=== PATIENT | female | born 1945 | race Two or more races ===

== ENCOUNTER 2017-05-19 17:48 | Emergency (ER) | payer BC, MEDICARE ==
[~2017-05-19] VITALS: Ht 160 cm; Wt 140.7 kg
[2017-05-19] MEDS ORDERED: [UNRECOGNIZED DRUG - OTHER] PO (18:03)
[2017-05-19] MEDS ORDERED: CLAR1TAB2 PO (18:03)
[2017-05-19] MEDS ORDERED: [UNRECOGNIZED DRUG - CODE] (18:03)
[2017-05-19] MEDS ORDERED: ASPIRIN 81 MG CHEW TABLET PO ONE (18:30)
[2017-05-19] MEDS ORDERED: IPRATROPIUM 0.5MG/ALBUTEROL 2.5MG INH SOL UD 3ML (DUONEB)(J7620) NEB PRN (18:30)
[2017-05-19 19:30] LABS: BASO % 0.7 % (0.0-1.0); EOS # 0.2 K/mm3 (0.0-0.50); EOS % 3.8 % (0.0-3.0); LARGE UNSTAINED CELL # 0.1 K/mm3 (0.0-0.4); LYMPH # 1.7 K/mm3 (1.5-4.5); LYMPH % 23.8 % (24.0-44.0); MEAN CORPUSCULAR HGB CONC 30.3 g/dl (32.0-36.5); MEAN CORPUSCULAR VOLUME 72.5 fl (80.0-96.0); MONO # 0.4 K/mm3 (0.0-0.8); MONO % 6.2 % (0.0-5.0); NEUTROPHILS # 4.2 K/mm3 (1.8-7.7); NEUTROPHILS % 63.5 % (36.0-66.0); PLATELET COUNT, AUTOMATED 480 k/mm3 (150-450); RED CELL DISTRIBUTION WIDTH 16.5 % (11.5-14.5); WHITE BLOOD COUNT 6.6 K/mm3 (4.0-10.0)
[2017-05-19 19:32] LABS: INR 1.14; VENOUS BASE EXCESS 2.3 (-2.0-2.0); VENOUS O2 SATURATION 77.6 % (60.0-80.0); VENOUS PARTIAL PRESSURE CO2 48.4 mmHg (38.0-50.0); VENOUS STANDARD HCO3 26.2 MEQ/L; VENOUS TOTAL CO2 29.5 MEQ/L (24.0-28.0)
--- NOTE | 2017-05-19 19:33 | REP ---
Chest x-ray: Two views: History: Dyspnea and cough. Comparison study: 07/11/2007. Findings: There is a retrocardiac hiatal hernia noted as a new finding. The lungs are well inflated and otherwise clear. The pleural angles are sharp. Heart is not enlarged. No significant bony abnormality is seen. There are some degenerative changes in the thoracic spine as before. Impression: Moderate size hiatal hernia. Otherwise no acute disease seen. Signed by Iron Garcia MD 05/19/2017 08:29 P
[2017-05-19 19:55] VITALS: BP 170/81
[2017-05-19 19:58] LABS: ALBUMIN 3.4 GM/DL (3.2-5.2); ALBUMIN/GLOBULIN RATIO 0.87 (1.00-1.93); ALKALINE PHOSPHATASE 78 U/L (45-117); ALT/SGPT 24 U/L (12-78); ANION GAP 8 MEQ/L (8-16); AST/SGOT 31 U/L (15-37); BILIRUBIN,DIRECT 0.1 MG/DL (0.0-0.2); BILIRUBIN,TOTAL 0.5 MG/DL (0.2-1.0); BLOOD UREA NITROGEN 24 MG/DL (7-18); CALCIUM LEVEL 9.7 MG/DL (8.8-10.2); CARBON DIOXIDE LEVEL 26 MEQ/L (21-32); CHLORIDE LEVEL 102 MEQ/L (98-107); CREATININE FOR GFR 0.84 MG/DL (0.55-1.02); GLOMERULAR FILTRATION RATE > 60.0 (>45); GLUCOSE, FASTING 121 MG/DL (80-110); POTASSIUM SERUM 3.6 MEQ/L (3.5-5.1); SODIUM LEVEL 136 MEQ/L (136-145); TOTAL PROTEIN 7.3 GM/DL (6.4-8.2)
--- NOTE | 2017-05-21 07:22 | ECGEPIP ---
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
== END 2017-05-19 20:18 | disposition home or self-care (01) ==
LOC: M ED 17:48
DX: R06.02 Shortness of breath (principal); R42 Dizziness and giddiness; Z87.891 Personal history of nicotine dependence

== ENCOUNTER 2017-05-24 16:11 | Inpatient (IN) | payer MEDICARE ==
[~2017-05-24] VITALS: Ht 165.1 cm; Wt 140.7 kg
[~2017-05-24 16:11] MED LIST: CLAR1TAB2 PO; [UNRECOGNIZED DRUG - CODE]; [UNRECOGNIZED DRUG - OTHER] PO
[2017-05-24 18:28] LABS: CONTROL LINE MONO RF C INT CTR LINE PRESENT
[2017-05-24 18:33] LABS: BASO % 0.6 % (0.0-1.0); EOS # 0.1 K/mm3 (0.0-0.50); EOS % 1.7 % (0.0-3.0); LARGE UNSTAINED CELL # 0.2 K/mm3 (0.0-0.4); LARGE UNSTAINED CELL % 2.5 % (0.0-4.0); LYMPH # 1.5 K/mm3 (1.5-4.5); LYMPH % 20.4 % (24.0-44.0); MEAN CORPUSCULAR HEMOGLOBIN 21.7 pg (27.0-33.0); MEAN CORPUSCULAR HGB CONC 29.9 g/dl (32.0-36.5); MEAN CORPUSCULAR VOLUME 72.6 fl (80.0-96.0); MONO # 0.4 K/mm3 (0.0-0.8); MONO % 6.4 % (0.0-5.0); NEUTROPHILS # 4.5 K/mm3 (1.8-7.7); NEUTROPHILS % 68.4 % (36.0-66.0); PLATELET COUNT, AUTOMATED 533 k/mm3 (150-450); RED CELL DISTRIBUTION WIDTH 16.7 % (11.5-14.5); WHITE BLOOD COUNT 6.6 K/mm3 (4.0-10.0)
[2017-05-24 18:42] LABS: ALKALINE PHOSPHATASE 82 U/L (45-117); ALT/SGPT 20 U/L (12-78); ANION GAP 11 MEQ/L (8-16); AST/SGOT 27 U/L (15-37); BLOOD UREA NITROGEN 18 MG/DL (7-18); CALCIUM LEVEL 8.9 MG/DL (8.8-10.2); CARBON DIOXIDE LEVEL 26 MEQ/L (21-32); CHLORIDE LEVEL 103 MEQ/L (98-107); CREATININE FOR GFR 0.99 MG/DL (0.55-1.02); GLOMERULAR FILTRATION RATE 59.2 (>45); GLUCOSE, FASTING 121 MG/DL (80-110); POTASSIUM SERUM 3.5 MEQ/L (3.5-5.1); SODIUM LEVEL 140 MEQ/L (136-145)
[2017-05-24 18:43] LABS: ADD MORPHOLOGY? YES; ALBUMIN 3.2 GM/DL (3.2-5.2); ALBUMIN/GLOBULIN RATIO 0.84 (1.00-1.93); BILIRUBIN,DIRECT 0.2 MG/DL (0.0-0.2); BILIRUBIN,TOTAL 0.6 MG/DL (0.2-1.0)
[2017-05-24 19:02] LABS: ANISOCYTOSIS 1+; HYPOCHROMASIA 2+; MICROCYTOSIS 2+
--- NOTE | 2017-05-24 19:09 | REP ---
Clinical: Chest pain . Comparison: 05/19/2017 . Findings: The mediastinum and cardiac silhouette are stable and within normal limits for portable technique. The lung harvey are clear without acute consolidation, effusion, or pneumothorax. Skeletal structures are intact. Impression: No acute cardiopulmonary process appreciated. Signed by Sharad Cullen MD 05/24/2017 07:00 P
[2017-05-24] MEDS ORDERED: ISOVUE-370 76% 100ML VIAL (Q9967) As Ordered ONE (19:25)
--- NOTE | 2017-05-24 20:06 | REP ---
Clinical: Chest pain with dyspnea on exertion. Technique: Axial contrast enhanced images from the thoracic inlet to the upper abdomen using 100 ml Isovue 370 intravenous contrast material with multiplanar re-formations. Findings: Satisfactory enhancement of the pulmonary vasculature is achieved and small second and third order branch pulmonary emboli identified to the bilateral lower lobes and to a lesser extent the upper lobes. No acute pulmonary parenchymal consolidation. No effusion. No pneumothorax. Tracheobronchial tree is patent. Moderate hiatal hernia identified at the gastroesophageal junction. The thoracic aorta, heart and pericardium are normal. Surrounding musculoskeletal structures are intact. Impression: Second and third order pulmonary emboli to the bilateral lower lobes and smaller emboli to the bilateral upper lobes. No associated pulmonary parenchymal consolidation, effusion or atelectasis. Signed by Sharad Cullen MD 05/24/2017 07:58 P
[2017-05-24] MEDS ORDERED: ENOXAPARIN 150 MG/ML SYR (J1650) SC ONE (20:15)
[2017-05-24] MEDS ORDERED: NS 1,000 ML IV ONE (20:15)
[2017-05-24 20:34] LABS: INR 1.11
[2017-05-24] MEDS ORDERED: DRAM50TA7 PO (21:35)
[2017-05-24] MEDS ORDERED: TUMS500C PO (21:35)
[2017-05-24] MEDS ORDERED: ALEV220T26 PO (21:35)
[2017-05-24] MEDS ORDERED: NEOSPORIN OINT 0.9 GM PKT (FLOOR STOCK) As Ordered ONE (22:29)
[2017-05-24 22:30] VITALS: BP 158/84
--- NOTE | 2017-05-25 00:03 | HPEPDOC ---
General Date of Admission May 24, 2017 at 21:17 Other Providers PT HAS NO PCP Chief Complaint The patient is a 71-year-old female admitted with a reason for visit of Pulmonary Embolism, Bilateral. Source: Patient Exam Limitations: No limitations Timing/Duration: Week(s) (2) Severity: Moderate Associated Symptoms: Cough, Fever, Chills, Shortness of breath History of Present Illness Ms Lobo is a 71 y/o female with no known past medical history who presents to the ED with CC of SOB. The pt states that almost two months ago she began feeling ill, with tactile fever and chills. She said about two weeks ago she noted gradually increasing SOB, especially with ambulation. She was seen in our ED a few days ago and at an urgent care today, where it was suggested as per pt. she may have an element of heart failure. However, urgent care recommended she come back to the ED for further evaluation where it was found she had an elevated D-dimer and CT findings of pulmonary emboli. The pt denied n/v or abdominal pain, no change in urinary or bowel habits, no blood in urine or stool , no prolonged periods of immobility in her recent past such as car rides or airplane flights, no personal hx of cancer and no clotting disorders in her family, she also denied having swelling or redness in her legs. She states she "hasn't seen a doctor in 42 years" because "she hates doctors and hospitals" and has "been busy taking care of my family", and as such she has no idea what her medical conditions are. although she states she may have high blood pressure. Home Medications Scheduled Apixaban Base (Eliquis) 5 Mg Tab, 10 MG PO BID Scheduled PRN Calcium Carbonate (Tums) 500 Mg Chw, 1,000 MG PO PC PRN for HEARTBURN, (Reported ) Dimenhydrinate (Dramamine) 50 Mg Tab, 50 MG PO Q6H PRN for NAUSEA, (Reported) Loratadine (Claritin) 10 Mg Tab, 10 MG PO DAILY PRN for ALLERGY SYMPTOMS, ( Reported) Naproxen Sodium (Aleve) 220 Mg Tab, 220 MG PO BID PRN for HEADACHE OR PAIN, ( Reported) Allergies Coded Allergies: No Known Drug Allergy (Verified Allergy, Unknown, 05/19/17) Past Medical History Medical History none Family History Significant Family History: No pertinent family hx Social History * Smoker: Denies Alcohol: Denies Drugs: denies 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 Review of Symptoms Constitutional: Reports: Chills, Fever (tactile) Eyes: Denies: Pain, Vision change ENT: Denies: Head Aches Skin: Denies: Rash, Lesions Pulmonary: Reports: Dyspnea, Cough Cardiovascular: Reports: Edema (chronic LE edema +1 b/l), Denies: Chest Pain, Palpitations, Orthopnea Gastrointestinal: Denies: Nausea, Vomiting, Abdominal Pain, Diarrhea, Constipation Genitourinary: Denies: Dysuria Neurological: Denies: Weakness, Numbness Psych: Reports: Mood Normal Physical Examination Chest Exam: Positive: Clear to auscultation, Normal air movement, Negative: Rales, Rhonchi, Wheezing Heart Exam: Positive: Rate Normal, Normal S1, Normal S2 Abdomen Exam: Positive: Normal bowel sounds, Soft, Negative: Tenderness, Hepatospenomegaly Extremity Exam: Positive: Edema (+1 b/l LE chronic), Negative: Clubbing, Cyanosis Psych Exam: Positive: Oriented x 3 Vital Signs Vital Signs Date Time Temp Pulse Resp B/P (MAP) Pulse Ox O2 Delivery O2 Flow Rate FiO2 05/24/17 22:30 99.8 94 18 158/84 (108) 97 Room Air Laboratory Data Labs 24H Laboratory Tests 2 05/24/17 17:48: White Blood Count 6.6, Red Blood Count 4.43, Hemoglobin 9.6L, Hematocrit 32.1L, Mean Corpuscular Volume 72.6L, Mean Corpuscular Hemoglobin 21.7L, Mean Corpuscular Hemoglobin Concent 29.9L, Red Cell Distribution Width 16.7H, Platelet Count 533H, Neutrophils (%) (Auto) 68.4H, Lymphocytes (%) (Auto) 20.4L , Monocytes (%) (Auto) 6.4H, Eosinophils (%) (Auto) 1.7, Basophils (%) (Auto) 0.6, Neutrophils # (Auto) 4.5, Lymphocytes # (Auto) 1.5, Monocytes # (Auto) 0.4 , Eosinophils # (Auto) 0.1, Basophils # (Auto) 0.0, Large Unclassified Cells % 2.5, Large Unclassified Cells # 0.2, Platelet Estimate INCREASED, Hypochromasia 2+, Anisocytosis 1+, Microcytosis 2+, Prothrombin Time 14.5, Prothromb Time International Ratio 1.11, Activated Partial Thromboplast Time 34.0, D-Dimer, Quantitative 3128.5H, Anion Gap 11, Glomerular Filtration Rate 59.2, Calcium Level 8.9, Aspartate Amino Transf (AST/SGOT) 27, Alanine Aminotransferase (ALT/ SGPT) 20, Alkaline Phosphatase 82, Total Bilirubin 0.6, Direct Bilirubin 0.2, Total Creatine Kinase 79, Creatine Kinase MB 1.0, Creatine Kinase MB Relative Index 1.26, Troponin I < 0.02, B-Type Natriuretic Peptide 57.9, Total Protein 7.0, Albumin 3.2, Albumin/Globulin Ratio 0.84L, Lipase 119, Monoscreen NEGATIVE CBC/BMP Laboratory Tests 05/24/17 17:48 Red Blood Count 4.43, Mean Corpuscular Volume 72.6 L, Mean Corpuscular Hemoglobin 21.7 L, Mean Corpuscular Hemoglobin Concent 29.9 L, Red Cell Distribution Width 16.7 H, Neutrophils (%) (Auto) 68.4 H, Lymphocytes (%) (Auto ) 20.4 L, Monocytes (%) (Auto) 6.4 H, Eosinophils (%) (Auto) 1.7, Basophils (%) (Auto) 0.6, Neutrophils # (Auto) 4.5, Lymphocytes # (Auto) 1.5, Monocytes # ( Auto) 0.4, Eosinophils # (Auto) 0.1, Basophils # (Auto) 0.0 Problems (1) Pulmonary embolism Status: Acute Response to Treatment: Stable Problem Text: pt received one dose SQ heparin in ED will begin Heparin IV (2) Shortness of breath on exertion Status: Acute Response to Treatment: Stable Problem Text: suspect 2/2 Pulmonary emboli and general deconditioning pt denies SOB on exam, 97% on room air BNP 57.9, cardiac trop first set neg. (3) Anemia Status: Acute Response to Treatment: Stable Problem Text: H/H 9.6/32.1 Seems pt is usually in the 9's Since she has never seen a doctor for many years and thus has had no colonoscopy , will order iron studies. may consider colonoscopy outpt f/u. (4) DVT prophylaxis Status: Acute Response to Treatment: Stable Problem Text: scdteds Plan / VTE VTE Prophylaxis Ordered?: Yes GME ATTESTATION GME ATTESTATION My preceptor for this patient encounter was physically present in the building during the encounter and was fully available. As needed, all aspects of the patient interview, examination, medical decision making process, and medical care plan development were reviewed and approved by the preceptor. Preceptor is aware and concurs with the plan as stated in the body of this note and will attest to such by his/her cosignature. GME ATTESTATION GME ATTESTATION My preceptor for this patient encounter was physically present in the building during the encounter and was fully available. As needed, all aspects of the patient interview, examination, medical decision making process, and medical care plan development were reviewed and approved by the preceptor. Preceptor is aware and concurs with the plan as stated in the body of this note and will attest to such by his/her cosignature. ATTENDING NOTE Pt seen and examined by me. Findings and plan reviewed with resident. Resident note reviewed and agree with documented findings and plan. 1. Pt with newly dx acute b/l PE Pt's prognosis good given her neg troponins/bnp. With her BMI >52 she is not a candidate for LMWH Start UFH with bolus and then continue with PTT q6-adjust based on wt based protocol f/u serial CBC CAMILO SOTO DO May 25, 2017 00:03 Heber Ace MD May 26, 2017 06:46
[2017-05-25] MEDS ORDERED: HEPARIN DRIP 25,000 UNITS in APPROPRIATE DILUENT 1 EA IV SCH (01:08)
[2017-05-25] MEDS ORDERED: HEPARIN SOD (PORCINE) 5000 UNITS/ML VIAL IV ONE (01:15)
[2017-05-25] MEDS ORDERED: HEPARIN SOD (PORCINE) 5000 UNITS/ML VIAL IV PRN (01:15)
[2017-05-25 06:24] VITALS: BP 146/67
[2017-05-25 07:00] LABS: BASO % 0.7 % (0.0-1.0); EOS # 0.2 K/mm3 (0.0-0.50); EOS % 3.1 % (0.0-3.0); LARGE UNSTAINED CELL # 0.4 K/mm3 (0.0-0.4); LARGE UNSTAINED CELL % 5.8 % (0.0-4.0); LYMPH # 1.3 K/mm3 (1.5-4.5); LYMPH % 18.7 % (24.0-44.0); MEAN CORPUSCULAR HEMOGLOBIN 21.9 pg (27.0-33.0); MEAN CORPUSCULAR HGB CONC 30.1 g/dl (32.0-36.5); MEAN CORPUSCULAR VOLUME 72.9 fl (80.0-96.0); MONO # 0.4 K/mm3 (0.0-0.8); MONO % 5.6 % (0.0-5.0); NEUTROPHILS # 4.7 K/mm3 (1.8-7.7); NEUTROPHILS % 66.2 % (36.0-66.0); PLATELET COUNT, AUTOMATED 493 k/mm3 (150-450); RED CELL DISTRIBUTION WIDTH 16.5 % (11.5-14.5)
[2017-05-25 07:27] LABS: ANION GAP 6 MEQ/L (8-16); BLOOD UREA NITROGEN 17 MG/DL (7-18); CALCIUM LEVEL 8.4 MG/DL (8.8-10.2); CARBON DIOXIDE LEVEL 27 MEQ/L (21-32); CHLORIDE LEVEL 106 MEQ/L (98-107); CREATININE FOR GFR 0.73 MG/DL (0.55-1.02); GLOMERULAR FILTRATION RATE > 60.0 (>45); GLUCOSE, FASTING 107 MG/DL (80-110); SODIUM LEVEL 139 MEQ/L (136-145)
--- NOTE | 2017-05-25 07:32 | ECGEPIP ---
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
[2017-05-25 08:14] LABS: MAGNESIUM LEVEL 1.9 MG/DL (1.8-2.4)
[2017-05-25] MEDS ORDERED: POTASSIUM CHLORIDE 10 MEQ SR TABLET PO ONE (08:15)
[2017-05-25 08:41] LABS: RETIC HEMOGLOBIN CONTENT CHr 24.1 PG (24-36); RETICULOCYTE ABSOLUTE ADVIA212 87 x10(9)/L (17-77)
[2017-05-25 08:49] LABS: REASON FOR REVIEW ANEMIA / RBC MORPH
[2017-05-25] MEDS: APIXABAN 5 MG TAB (ELIQUIS) PO SCH ×2 (09:06→21:15)
[2017-05-25] MEDS ORDERED: ELIQ5TAB PO (10:23)
[2017-05-25 10:36] LABS: INR 1.28
--- NOTE | 2017-05-25 10:56 | IPNPDOC ---
Date Seen The patient was seen on 05/25/17. Progress Note Subjective: Ms. Lobo was seen and evaluated at the bedside this morning. She is in good spirits. She does complain of fatigue and shortness of breath with exertion, however while sitting in the bed she is feeling fine. She did get up and ambulate with physical therapy, and apparently this went well, but she was winded afterwards. She denies any chest discomfort, palpitations, she does have minimal swelling in the lower extremities bilaterally, but this is improved with the application of TEDs. Otherwise, she is quite desirous him to leave, she was informed that she should remain at least one additional day, not to mention that we need to set her up with a primary care provider for follow-up upon discharge as well as obtaining prior approval for Eliquis. Objective: General: Awake, alert, oriented 3. She is in no acute distress. HEENT: Head normocephalic, atraumatic, sclera are nonicteric. Hearing is grossly intact to conversation. Respiratory: Clear to auscultation bilaterally with no wheezes, rales, or rhonchi. Cardiovascular: Regular rate and rhythm, with no rubs, gallops, or murmur. Abdomen: Soft, nontender, nondistended, no hepatosplenomegaly appreciated. Bowel sounds present. Extremities: 2+ pulses in the radial and dorsalis pedis bilaterally. No evidence of clubbing or cyanosis. She does have trace pitting edema in the lower extremities bilaterally to just above the ankles. She is wearing REBEKA hose as recommended. Assessment: 1. Multiple second and third order pulmonary emboli with other smaller emboli scattered throughout 2. Shortness of breath on exertion 3. Microcytic iron deficiency anemia 4. Hypokalemia 5. DVT prophylaxis with Eliquis Plan: As the patient is doing well clinically, she has been switched over to Eliquis. Prior approval for use as an outpatient will need to be obtained. She also needs to establish with a new primary care physician. In the meantime, she has been started on iron supplementation for her iron deficiency anemia, and potassium repletion has been ordered. We'll recheck labs again tomorrow and evaluate clinically. Continue with physical therapy as well. My preceptor for this patient encounter was physically present in the building during the encounter and was fully available. As needed, all aspects of the patient interview, examination, medical decision making process, and medical care plan development were reviewed and approved by the preceptor. Preceptor is aware and concurs with the plan as stated in the body of this note and will attest to such by his/her cosignature. VS, I&O, 24H, Fishbone Vital Signs/I&O Vital Signs Date Time Temp Pulse Resp B/P (MAP) Pulse Ox O2 Delivery O2 Flow Rate FiO2 05/25/17 06:24 100.2 83 16 146/67 (93) 97 Room Air I&O- Last 24 Hours up to 6 AM 05/25/17 06:00 Intake Total 1080 ml Output Total 100 ml Balance 980 ml Laboratory Data 24H LABS Laboratory Tests 2 05/24/17 17:48: White Blood Count 6.6, Red Blood Count 4.43, Hemoglobin 9.6L, Hematocrit 32.1L, Mean Corpuscular Volume 72.6L, Mean Corpuscular Hemoglobin 21.7L, Mean Corpuscular Hemoglobin Concent 29.9L, Red Cell Distribution Width 16.7H, Platelet Count 533H, Neutrophils (%) (Auto) 68.4H, Lymphocytes (%) (Auto) 20.4L , Monocytes (%) (Auto) 6.4H, Eosinophils (%) (Auto) 1.7, Basophils (%) (Auto) 0.6, Neutrophils # (Auto) 4.5, Lymphocytes # (Auto) 1.5, Monocytes # (Auto) 0.4 , Eosinophils # (Auto) 0.1, Basophils # (Auto) 0.0, Large Unclassified Cells % 2.5, Large Unclassified Cells # 0.2, Platelet Estimate INCREASED, Hypochromasia 2+, Anisocytosis 1+, Microcytosis 2+, Prothrombin Time 14.5, Prothromb Time International Ratio 1.11, Activated Partial Thromboplast Time 34.0, D-Dimer, Quantitative 3128.5H, Anion Gap 11, Glomerular Filtration Rate 59.2, Calcium Level 8.9, Aspartate Amino Transf (AST/SGOT) 27, Alanine Aminotransferase (ALT/ SGPT) 20, Alkaline Phosphatase 82, Total Bilirubin 0.6, Direct Bilirubin 0.2, Total Creatine Kinase 79, Creatine Kinase MB 1.0, Creatine Kinase MB Relative Index 1.26, Troponin I < 0.02, B-Type Natriuretic Peptide 57.9, Total Protein 7.0, Albumin 3.2, Albumin/Globulin Ratio 0.84L, Lipase 119, Monoscreen NEGATIVE 05/25/17 00:01: Estimated Mean Plasma Glucose 123H, Hemoglobin A1c 5.9, Iron Level 18L, Total Iron Binding Capacity 361, Transferrin % Saturation 5.0L, Ferritin 12 05/25/17 01:46: Activated Partial Thromboplast Time > 240.0*H 05/25/17 06:42: White Blood Count 7.0, Red Blood Count 3.93L, Hemoglobin 8.6L, Hematocrit 28.7L , Mean Corpuscular Volume 72.9L, Mean Corpuscular Hemoglobin 21.9L, Mean Corpuscular Hemoglobin Concent 30.1L, Red Cell Distribution Width 16.5H, Platelet Count 493H, Neutrophils (%) (Auto) 66.2H, Lymphocytes (%) (Auto) 18.7L , Monocytes (%) (Auto) 5.6H, Eosinophils (%) (Auto) 3.1H, Basophils (%) (Auto) 0.7, Neutrophils # (Auto) 4.7, Lymphocytes # (Auto) 1.3L, Monocytes # (Auto) 0.4 , Eosinophils # (Auto) 0.2, Basophils # (Auto) 0.0, Large Unclassified Cells % 5.8H, Large Unclassified Cells # 0.4, Anion Gap 6L, Glomerular Filtration Rate > 60.0, Calcium Level 8.4L, Total Creatine Kinase 84, Creatine Kinase MB 1.0, Creatine Kinase MB Relative Index 1.19, Troponin I < 0.02, Differential Slide Review Report, Differential Pathologist's Review ANEMIA / RBC MORPH, Peripheral Blood Smear Path Consult PERIPHERAL SMEAR, Absolute Reticulocyte Count 87H, Percent Reticulocyte Count 2.20H, Reticulocyte Hgb Content (CHr) 24.1, Blood Urea Nitrogen 17, Creatinine 0.73, Sodium Level 139, Potassium Level 3.0L, Chloride Level 106, Carbon Dioxide Level 27, Magnesium Level 1.9 05/25/17 09:47: Prothrombin Time 16.3H, Prothromb Time International Ratio 1.28 CBC/BMP Laboratory Tests 05/24/17 17:48 Red Blood Count 4.43, Mean Corpuscular Volume 72.6 L, Mean Corpuscular Hemoglobin 21.7 L, Mean Corpuscular Hemoglobin Concent 29.9 L, Red Cell Distribution Width 16.7 H, Neutrophils (%) (Auto) 68.4 H, Lymphocytes (%) (Auto ) 20.4 L, Monocytes (%) (Auto) 6.4 H, Eosinophils (%) (Auto) 1.7, Basophils (%) (Auto) 0.6, Neutrophils # (Auto) 4.5, Lymphocytes # (Auto) 1.5, Monocytes # ( Auto) 0.4, Eosinophils # (Auto) 0.1, Basophils # (Auto) 0.0 05/25/17 06:42 Red Blood Count 3.93 L, Mean Corpuscular Volume 72.9 L, Mean Corpuscular Hemoglobin 21.9 L, Mean Corpuscular Hemoglobin Concent 30.1 L, Red Cell Distribution Width 16.5 H, Neutrophils (%) (Auto) 66.2 H, Lymphocytes (%) (Auto ) 18.7 L, Monocytes (%) (Auto) 5.6 H, Eosinophils (%) (Auto) 3.1 H, Basophils (% ) (Auto) 0.7, Neutrophils # (Auto) 4.7, Lymphocytes # (Auto) 1.3 L, Monocytes # (Auto) 0.4, Eosinophils # (Auto) 0.2, Basophils # (Auto) 0.0, Calcium Level 8.4 L, Total Creatine Kinase 84 GME ATTESTATION GME ATTESTATION My preceptor for this patient encounter was physically present in the building during the encounter and was fully available. As needed, all aspects of the patient interview, examination, medical decision making process, and medical care plan development were reviewed and approved by the preceptor. Preceptor is aware and concurs with the plan as stated in the body of this note and will attest to such by his/her cosignature. ATTENDING NOTE I have both independently examined this patient as well as reviewed the note. I have discussed in detail with the resident the findings and plan of treatment as documented in the residents note. I will continue to follow the patient and offer further guidance to the patients care as necessary during this hospital stay. JORGE Mcdaniel MD, DO May 25, 2017 10:56 MOE RENEE MD May 26, 2017 06:49
[2017-05-25] MEDS: ASCORBIC ACID 500 MG TAB PO SCH ×2 (11:10→21:15)
[2017-05-25] MEDS: SENOKOT S TAB PO SCH ×2 (11:10→21:16)
[2017-05-25] MEDS: FERROUS SULFATE 325MG TAB PO SCH ×2 (11:10→21:16)
[2017-05-25 14:00] VITALS: BP 123/74
[2017-05-25 22:00] VITALS: BP 136/87
[2017-05-25 22:15] VITALS: BP 137/61
[2017-05-26 07:42] LABS: BASO % 0.5 % (0.0-1.0); EOS # 0.2 K/mm3 (0.0-0.50); EOS % 2.9 % (0.0-3.0); LARGE UNSTAINED CELL # 0.2 K/mm3 (0.0-0.4); LARGE UNSTAINED CELL % 3.8 % (0.0-4.0); LYMPH # 1.2 K/mm3 (1.5-4.5); LYMPH % 19.6 % (24.0-44.0); MEAN CORPUSCULAR HGB CONC 30.1 g/dl (32.0-36.5); MEAN CORPUSCULAR VOLUME 73.3 fl (80.0-96.0); MONO # 0.4 K/mm3 (0.0-0.8); MONO % 5.8 % (0.0-5.0); NEUTROPHILS # 4.2 K/mm3 (1.8-7.7); NEUTROPHILS % 67.5 % (36.0-66.0); PLATELET COUNT, AUTOMATED 495 k/mm3 (150-450); RED CELL DISTRIBUTION WIDTH 17.1 % (11.5-14.5); WHITE BLOOD COUNT 6.3 K/mm3 (4.0-10.0)
[2017-05-26 07:55] LABS: ANION GAP 9 MEQ/L (8-16); BLOOD UREA NITROGEN 15 MG/DL (7-18); CALCIUM LEVEL 8.1 MG/DL (8.8-10.2); CARBON DIOXIDE LEVEL 24 MEQ/L (21-32); CHLORIDE LEVEL 108 MEQ/L (98-107); CREATININE FOR GFR 0.66 MG/DL (0.55-1.02); GLOMERULAR FILTRATION RATE > 60.0 (>45); GLUCOSE, FASTING 95 MG/DL (80-110); MAGNESIUM LEVEL 2.1 MG/DL (1.8-2.4); POTASSIUM SERUM 3.5 MEQ/L (3.5-5.1); SODIUM LEVEL 141 MEQ/L (136-145)
[2017-05-26 08:00] VITALS: BP 121/86
[2017-05-26 08:09] LABS: ADD MORPHOLOGY? YES
[2017-05-26] MEDS: FERROUS SULFATE 325MG TAB PO SCH (08:32)
[2017-05-26] MEDS: SENOKOT S TAB PO SCH (08:32)
[2017-05-26] MEDS: ASCORBIC ACID 500 MG TAB PO SCH (08:32)
[2017-05-26 08:55] LABS: ANISOCYTOSIS 1+; HYPOCHROMASIA 2+; MICROCYTOSIS 2+; POLYCHROMASIA 1+
[2017-05-26] MEDS: APIXABAN 5 MG TAB (ELIQUIS) PO SCH (10:09)
[2017-05-26] MEDS ORDERED: FERR1TAB8 PO (10:32)
--- NOTE | 2017-05-26 10:55 | DS.PDOC ---
Discharge Summary General Date of Admission May 24, 2017 at 21:17 Date of Discharge 05/26/2017 Discharge Summary PRIMARY CARE PHYSICIAN: She will establish with Dr. Rocio YU at the [facility] ATTENDING AT TIME OF DISCHARGE: Dr. Webb He DISCHARGE DIAGNOS(E)S: 1. Multiple scattered pulmonary emboli 2. Dyspnea on exertion 3. Hypochromic microcytic anemia with concurrent iron deficiency 4. Hypokalemia HPI & HOSPITAL COURSE: Ms. Lobo had been feeling increasingly short of breath, especially with exertion for the past 2 months, however she has worsened even further in the past 2 weeks or so, therefore she came to the emergency room for further evaluation. She was found to have an elevated d-dimer, a CT angiogram of the chest was performed which revealed multiple second and third order pulmonary emboli to the bilateral lower lobes and small emboli to the bilateral upper lobes with no associated pulmonary parenchymal consolidation, effusion, or atelectasis. A hiatal hernia was also noted. She was initially started on a heparin drip, and then subsequently transitioned over to Eliquis. She was also discovered to have anemia upon admission, her iron is low, but her TIBC is normal, a peripheral smear does reveal hypochromic microcytic anemia with features of iron deficiency anemia, therefore a trial of iron therapy is indicated, and she was started on iron supplementation. She does continue to feel short of breath, and somewhat fatigued, but otherwise is in good spirits. Her insurance has agreed to pay for Eliquis as an outpatient, and she seems clinically stable for discharge, therefore it seems appropriate that she can follow-up outpatient with her PCP. No etiology for her pulmonary emboli was discovered during her hospitalization, it is recommended to her outpatient provider to do a hematological and malignancy workup. PHYSICAL EXAMINATION ON DISCHARGE: GENERAL: Awake, alert, oriented 3. She is in no acute distress CARDIOVASCULAR EXAMINATION: Regular rate and rhythm, with no rubs, gallops, or murmur. RESPIRATORY EXAMINATION: Clear to auscultation bilaterally with no wheezes, rales, or rhonchi. ABDOMINAL EXAMINATION: Soft, nontender, nondistended. Bowel sounds present. EXTREMITIES: No clubbing or edema noted. 2+ pulses in the radial bilaterally. DISPOSITION: Home DISCHARGE INSTRUCTIONS: Follow-up with primary care provider within 7-10 days. Diet as tolerated. Activity as tolerated. If symptoms return, or if you experience worsening of your symptoms, please call your doctor or return to the emergency department. DISCHARGE MEDICATIONS: She is prescribed Eliquis in 5 mg tablets, please know that she should take 10 mg (two pills), twice a day for 7 days, then 5 mg (one pill) twice a day thereafter. She is also sent home with a prescription for ferrous sulfate to be taken twice a day for iron deficiency, it is recommended that she take this with vitamin C to enhance absorption, and she may need PRN stool softeners. ITEMS THAT NEED OUTPATIENT FOLLOWUP: Recommend a full hematological and malignancy workup for hypercoagulability. She has not seen a doctor in over 40 years, therefore I also recommend the usual preventative screening as well including colonoscopy, mammogram, Pap smear , vaccinations, etc. My preceptor for this patient encounter was physically present in the building during the encounter and was fully available. As needed, all aspects of the patient interview, examination, medical decision making process, and medical care plan development were reviewed and approved by the preceptor. Preceptor is aware and concurs with the plan as stated in the body of this note and will attest to such by his/her cosignature. Vital Signs/I&Os Vital Signs Date Time Temp Pulse Resp B/P (MAP) Pulse Ox O2 Delivery O2 Flow Rate FiO2 05/26/17 08:00 98.4 91 22 121/86 (98) 96 Room Air I&O- Last 24 Hours up to 6 AM 05/26/17 05:59 Intake Total 1920 ml Output Total 1300 ml Balance 620 ml Laboratory Data Labs 24H Laboratory Tests 2 05/26/17 06:38: White Blood Count 6.3, Red Blood Count 3.80L, Hemoglobin 8.4L, Hematocrit 27.9L , Mean Corpuscular Volume 73.3L, Mean Corpuscular Hemoglobin 22.0L, Mean Corpuscular Hemoglobin Concent 30.1L, Red Cell Distribution Width 17.1H, Platelet Count 495H, Neutrophils (%) (Auto) 67.5H, Lymphocytes (%) (Auto) 19.6L , Monocytes (%) (Auto) 5.8H, Eosinophils (%) (Auto) 2.9, Basophils (%) (Auto) 0.5, Neutrophils # (Auto) 4.2, Lymphocytes # (Auto) 1.2L, Monocytes # (Auto) 0.4 , Eosinophils # (Auto) 0.2, Basophils # (Auto) 0.0, Large Unclassified Cells % 3.8, Large Unclassified Cells # 0.2, Platelet Estimate NORMAL, Polychromasia 1+ , Hypochromasia 2+, Anisocytosis 1+, Microcytosis 2+, Anion Gap 9, Glomerular Filtration Rate > 60.0, Blood Urea Nitrogen 15, Creatinine 0.66, Sodium Level 141, Potassium Level 3.5, Chloride Level 108H, Carbon Dioxide Level 24, Calcium Level 8.1L, Magnesium Level 2.1, C-Reactive Protein, Quantitative 6.55H CBC/BMP Laboratory Tests 05/26/17 06:38 Red Blood Count 3.80 L, Mean Corpuscular Volume 73.3 L, Mean Corpuscular Hemoglobin 22.0 L, Mean Corpuscular Hemoglobin Concent 30.1 L, Red Cell Distribution Width 17.1 H, Neutrophils (%) (Auto) 67.5 H, Lymphocytes (%) (Auto ) 19.6 L, Monocytes (%) (Auto) 5.8 H, Eosinophils (%) (Auto) 2.9, Basophils (%) (Auto) 0.5, Neutrophils # (Auto) 4.2, Lymphocytes # (Auto) 1.2 L, Monocytes # ( Auto) 0.4, Eosinophils # (Auto) 0.2, Basophils # (Auto) 0.0, Calcium Level 8.1 L Discharge Medications Scheduled Apixaban Base (Eliquis) 5 Mg Tab, 10 MG PO BID Ferrous Sulfate (Ferrous Sulfate) 325 Mg Tab, 325 MG PO BID Scheduled PRN Calcium Carbonate (Tums) 500 Mg Chw, 1,000 MG PO PC PRN for HEARTBURN, (Reported ) Dimenhydrinate (Dramamine) 50 Mg Tab, 50 MG PO Q6H PRN for NAUSEA, (Reported) Loratadine (Claritin) 10 Mg Tab, 10 MG PO DAILY PRN for ALLERGY SYMPTOMS, ( Reported) Naproxen Sodium (Aleve) 220 Mg Tab, 220 MG PO BID PRN for HEADACHE OR PAIN, ( Reported) Allergies Coded Allergies: No Known Drug Allergy (Verified Allergy, Unknown, 05/19/17) GME ATTESTATION GME ATTESTATION My preceptor for this patient encounter was physically present in the building during the encounter and was fully available. As needed, all aspects of the patient interview, examination, medical decision making process, and medical care plan development were reviewed and approved by the preceptor. Preceptor is aware and concurs with the plan as stated in the body of this note and will attest to such by his/her cosignature. ATTENDING NOTE I have both independently examined this patient as well as reviewed the note. I have discussed in detail with the resident the findings and plan of treatment as documented in the residents note. I will continue to follow the patient and offer further guidance to the patients care as necessary during this hospital stay. JORGE Mcdaniel MD, DO May 26, 2017 10:55 MOE RENEE MD May 27, 2017 17:33
[2017-05-26 11:31] LABS: FOLATE 17.2 NG/ML (>5.4)
== END 2017-05-26 11:51 | disposition home or self-care (01) | DRG 176 ==
LOC: M ED 16:11 → M ED INP 21:17 → M MS5PR 22:30 → M PED 05-25 22:00
PROVIDERS: ATTEND Hospitalist
DX: I26.99 Other pulmonary embolism without acute cor pulmonale (principal); D50.9 Iron deficiency anemia, unspecified; E87.6 Hypokalemia; Z79.899 Other long term (current) drug therapy

== ENCOUNTER → 2017-06-04 | Outpatient (REF) | payer MEDICARE ==
[~2017-06-04] MED LIST changes: +ALEV220T26 PO; +DRAM50TA7 PO; +ELIQ5TAB PO; +FERR1TAB8 PO; +TUMS500C PO
[2017-06-15 00:10] LABS: Anticardiolipin Ab, IgA 12 APL (.); DRVTT Confirm Seconds 69.4 sec (.); DRVTT Ratio 0.9 ratio (.); DRVTT Screen Seconds 79.5 sec (.)
== END ==
LOC: M SFHCPLAZ 13:05
PROVIDERS: ATTEND Family Medicine
DX: I26.99 Other pulmonary embolism without acute cor pulmonale (principal); Z13.1 Encounter for screening for diabetes mellitus; Z13.220 Encounter for screening for lipoid disorders; D50.9 Iron deficiency anemia, unspecified; Z79.01 Long term (current) use of anticoagulants; Z79.899 Other long term (current) drug therapy

== ENCOUNTER → 2017-06-07 | Outpatient (REF) | payer MEDICARE | LOC: M SFHCPLAZ 12:42 | PROVIDERS: ATTEND Student in an Organized Health Care Education/Training Program | DX: I26.99 Other pulmonary embolism without acute cor pulmonale (principal); Z13.1 Encounter for screening for diabetes mellitus ==

== ENCOUNTER → 2017-06-18 | Outpatient (CLI) | payer MEDICARE ==
--- NOTE | 2017-06-18 14:58 | REPMRS ---
Patient History The patient states she has not had a clinical breast exam in over a year. Baseline Mammogram Patient is postmenopausal. Family history of colorectal cancer in son under age 50. Digital Woman Screen Mammo: June 18, 2017 - Exam #: [id number] Bilateral CC and MLO view(s) were taken. Technologist: Carrie Fang, Technologist FINDINGS: There are scattered fibroglandular densities. There is no evidence of cancer on this mammogram. ASSESSMENT: BI-RADS/ACR category 2 mammogram. Benign finding(s). Recommendation Routine screening mammogram of both breasts in 1 year (for women over age 40). This mammogram was interpreted with the aid of an FDA-approved computer-aided dectection system. Electronically Signed By: Pako Vee MD 06/18/17 [id number]
== END ==
LOC: M WHC 13:32
PROVIDERS: ATTEND Family Medicine
DX: Z12.31 Encounter for screening mammogram for malignant neoplasm of breast (principal)

== ENCOUNTER 2021-09-01 13:58 | Inpatient (IN) | payer MEDICARE ==
[~2021-09-01] VITALS: Ht 165.1 cm; Wt 139.4 kg
[2021-09-01] MEDS: METOPROLOL 5 MG/5 ML VIAL IV SCH ×3 (01:00→20:14)
[2021-09-01] MEDS ORDERED: METOPROLOL 5 MG/5 ML VIAL IV SCH (15:30)
[2021-09-01 15:47] LABS: BASO % 0.2 % (0.0-1.0); HEMATOCRIT 45.9 % (36.0-47.0); HEMOGLOBIN 15.6 g/dl (12.0-15.5); LYMPH # 0.8 10^3/uL (1.5-5.0); LYMPH % 6.4 % (24.0-44.0); MEAN CORPUSCULAR HEMOGLOBIN 31.9 pg (27.0-33.0); MEAN CORPUSCULAR VOLUME 93.9 fl (80.0-96.0); NEUTROPHILS # 10.9 10^3/uL (1.5-8.5); NEUTROPHILS % 84.9 % (36.0-66.0); PLATELET COUNT, AUTOMATED 266 10^3/uL (150-450); RED BLOOD COUNT 4.89 10^6/uL (4.00-5.40); WHITE BLOOD COUNT 12.9 10^3/uL (4.0-10.0)
[2021-09-01] MEDS ORDERED: LATA0.0015 OU (15:59)
[2021-09-01] MEDS ORDERED: LIDO1PAD TOP (15:59)
[2021-09-01] MEDS ORDERED: LISI10TA15 PO (15:59)
[2021-09-01] MEDS ORDERED: OMEP-221 PO (15:59)
--- NOTE | 2021-09-01 16:05 | REP ---
INDICATION: trauma COMPARISON: None. TECHNIQUE: AP, lateral, oblique views of the left foot. FINDINGS: Osteopenia and degenerative changes are appreciated primarily involving midfoot. No obvious acute fracture or dislocation identified. Lateral view demonstrates calcaneal heel spur. No subcutaneous emphysema or foreign body. IMPRESSION: Limited by osteopenia and degenerative changes. No obvious acute fracture or dislocation identified.. <Electronically signed by Sharad Cullen > 09/01/21 [id number]
[2021-09-01 16:30] LABS: ALBUMIN 3.1 GM/DL (3.2-5.2); BILIRUBIN,DIRECT 0.2 MG/DL (0.0-0.2); BILIRUBIN,TOTAL 0.9 MG/DL (0.2-1.0); CALCIUM LEVEL 9.1 MG/DL (8.8-10.2); CK-MB VALUE MASS 21.8 NG/ML (<3.6); CREATININE FOR GFR 3.34 MG/DL (0.55-1.30); FREE T4 1.84 NG/DL (0.76-1.46); GLOMERULAR FILTRATION RATE 14.4 (>39); MB/CK RELATIVE INDEX 0.53 (< OR =4); POTASSIUM SERUM 3.4 MEQ/L (3.5-5.1); THYROID STIMULATING HORMONE 0.619 uIU/ML (0.358-3.740); TROPONIN I 0.05 NG/ML (< 0.10)
[2021-09-01] MEDS ORDERED: POTASSIUM CHLORIDE 10MEQ SR TABLET PO ONE (16:45)
[2021-09-01] MEDS ORDERED: ACETAMINOPHEN TAB 650MG DOSE (2X325MG) PO ONE (19:00)
--- NOTE | 2021-09-01 19:16 | REPVR ---
PROCEDURE INFORMATION: Exam: CT Head Without Contrast Exam date and time: 09/01/2021 3:19 PM Age: 75 years old Clinical indication: Injury or trauma; Fall; Blunt trauma (contusions or hematomas) TECHNIQUE: Imaging protocol: Computed tomography of the head without contrast. Radiation optimization: All CT scans at this facility use at least one of these dose optimization techniques: automated exposure control; mA and/or kV adjustment per patient size (includes targeted exams where dose is matched to clinical indication); or iterative reconstruction. COMPARISON: No relevant prior studies available. FINDINGS: Brain: No intracranial mass, mass effect or midline shift. No acute intracranial hemorrhage. No CT evidence of acute cortical infarct. Ventricles, cisterns, and sulci are normal in size for age. Paranasal sinuses: Imaged paranasal sinuses are normally aerated. Mastoid air cells: Mastoid air cells and middle ear structures are normally aerated. Orbital cavity: Imaged orbits are unremarkable. Bones/joints: No calvarial fracture or destructive process. Soft tissues: No focal extracranial soft tissue swelling. IMPRESSION: No acute or concerning focal intracranial abnormality. Electronically signed by: Colten Meyer On 09/01/2021 19:15:31 PM
--- NOTE | 2021-09-01 19:18 | REPVR ---
PROCEDURE INFORMATION: Exam: CT Cervical Spine Without Contrast Exam date and time: 09/01/2021 3:19 PM Age: 75 years old Clinical indication: Injury or trauma; Fall; Blunt trauma TECHNIQUE: Imaging protocol: Computed tomography images of the cervical spine without contrast. Radiation optimization: All CT scans at this facility use at least one of these dose optimization techniques: automated exposure control; mA and/or kV adjustment per patient size (includes targeted exams where dose is matched to clinical indication); or iterative reconstruction. COMPARISON: CT ANGIO CHEST 05/24/2017 7:41 PM FINDINGS: Bones/joints: No traumatic segmental malalignment of cervical spine or craniocervical junction. Vertebral body height is maintained at all levels. No acute fracture. No destructive or blastic cervical spine osseous lesion. Discs/Spinal canal/Neural foramina: Intervertebral disc height is decreased at multiple levels, with typical degenerative pattern and associated endplate, articular pillar and uncovertebral spurs. Lungs: No concerning abnormality of the imaged lung apices. Soft tissues: Soft tissues show no concerning abnormality or asymmetry. IMPRESSION: 1. No acute fracture or traumatic subluxation of the cervical spine. 2. Multilevel degenerative disc and articular pillar arthropathy. Electronically signed by: Colten Meyer On 09/01/2021 19:17:45 PM
--- NOTE | 2021-09-01 19:28 | ECGEPIP ---
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
--- NOTE | 2021-09-01 19:38 | REPVR ---
PROCEDURE INFORMATION: Exam: CT Chest Without Contrast; Diagnostic Exam date and time: 09/01/2021 4:40 PM Age: 75 years old Clinical indication: Shortness of breath; Additional info: SOB TECHNIQUE: Imaging protocol: Diagnostic computed tomography of the chest without contrast. 3D rendering (Not supervised by radiologist): MIP and/or 3D reconstructed images were created by the technologist. Radiation optimization: All CT scans at this facility use at least one of these dose optimization techniques: automated exposure control; mA and/or kV adjustment per patient size (includes targeted exams where dose is matched to clinical indication); or iterative reconstruction. COMPARISON: CT ANGIO CHEST 05/24/2017 7:41 PM FINDINGS: Lungs: Patchy right upper lobe density likely reflecting pneumonitis. There is bronchial wall thickening consistent with bronchitis. Pleural spaces: No pleural effusion. No pneumothorax. Heart: Borderline cardiomegaly. No pericardial effusion. Aorta: Tortuous. Ectatic ascending aorta, measuring up to 3.8 cm in diameter. Lymph nodes: Mediastinal and hilar lymph nodes remain within upper limits of normal size. Gallbladder and bile ducts: Gallbladder wall calcifications are noted. Stomach: There is a large type 1 hiatal hernia containing at least half the stomach. Bones/joints: There are diffuse enthesopathic changes consistent with benign diffuse idiopathic skeletal hyperostosis (DISH). No acute fracture. IMPRESSION: 1. Right upper lobe pneumonitis. 2. Findings of bronchitis. 3. Large hiatal hernia. 4. Ectatic ascending aorta. Electronically signed by: Buffy Noel On 09/01/2021 19:37:51 PM
[2021-09-01] MEDS ORDERED: HEPARIN SOD (PORCINE) 5000UNITS/ML 1ML VIAL/SYRINGE IV PRN (20:00)
[2021-09-01] MEDS ORDERED: LORazepam 2 MG TAB PO PRN (20:00)
[2021-09-01] MEDS ORDERED: MAALOX 30 ML SUSP *UDC PO PRN (20:00)
[2021-09-01] MEDS ORDERED: MOM 30ML SUSPENSION UDC PO PRN (20:00)
--- NOTE | 2021-09-01 20:00 | HPEPDOC ---
[facility] Medical History & Physical Date of Admission Sep 01, 2021 Date of Service: Sep 01, 2021 Primary Care Physician: Angel Hester MD Attending Physician: ULISES MCGREGOR MD History and Physical TIME OF SERVICE: 823PM CHIEF COMPLAINT: Fall HISTORY OF PRESENT ILLNESS: For about 2 days has been feeling short of breath, has been coughing and has had a cough productive of green sputum. Her appetite has also been poor for the last week, she last drank gianni tavares several days ago and hasnt been eating. At about 1AM this morning while trying to stand up with her cane felt a cramping sensation in her left leg and subsequently fell down onto the floor. She denies having chest pain, feeling dizzy, or having vomiting or diarrhea prior to the fall. After the fall she was unsuccessful in getting up so she stayed on the ground until about 11AM when her found her. She denies having any changes in her chronic back pain; she also denies having perineal paresthesia, fecal incontinence or any changes in her chronic urinary incontinence. REVIEW OF SYSTEMS: 10-point review of systems negative except as listed in HPI PAST MEDICAL/ SURGICAL HISTORY: longstanding persistent A.fib, hx of PE, essential HTN, class 3 obesity, chronic back pain/sciatica, DISH, type 1 hiatal hernia, Tubal ligation, tonsillectomy FAMILY HISTORY: mother & sister COPD/ father of OR / multiple relatives have HTN / son has cancer SOCIAL HISTORY: She denies smoking (old medical records report that she is a smoker), she drinks wine about 1x a week ALLERGIES: Please see below. HOME MEDICATIONS: Please see below. PHYSICAL EXAMINATION: Date Time Temp Pulse Resp B/P (MAP) Pulse Ox O2 Delivery O2 Flow Rate FiO2 09/01/21 14:46 116/70 (85) 09/01/21 14:49 160 18 80 Room Air 09/01/21 18:45 100.8 GENERAL APPEARANCE: well-nourished and developed/ NAD HEENT: EOMI / MMM&P CARDIOVASCULAR: HR irregularly irregular/no BLE edema LUNGS: her lips are not cyanotic /she is not using accessory muscles / she is able to speak full sentences w/o stopping to take a breath/ it is difficult to auscultate breath sounds bc of her body habitus ABDOMEN: contour convex / soft & NT w palpation MUSCULOSKELETAL: NCAT / she is able to move her arms and bend her knees / she declined the request to turn on to her back so I could perform the straight leg test and WILIAM test INTEGUMENT: she is not flushed or diaphoretic NEUROLOGICAL: CN 2-12 grossly intact / speech not dysarthric PSYCHIATRIC: A&O / able to understand and follow all commands LABORATORY DATA: IMAGING: Foot xray IMPRESSION: Limited by osteopenia and degenerative changes. No obvious acute fracture or dislocation identified. CT cervical spine IMPRESSION: 1. No acute fracture or traumatic subluxation of the cervical spine. 2. Multilevel degenerative disc and articular pillar arthropathy. CT head IMPRESSION: No acute or concerning focal intracranial abnormality. CT chest IMPRESSION: 1. Right upper lobe pneumonitis. 2. Findings of bronchitis. 3. Large hiatal hernia. 4. Ectatic ascending aorta. MICROBIOLOGY: + Parainfluenza B ASSESSMENT: is a 75 yr old F w a hx of A.fib, PE, HTN, sciatica and obesity who is admitted for Sepsis 2/2 parainfluenza infection, Rapid A fib, MAR and rhabdomyolysis. PLAN: 1 Sepsis 2/2 parainfluenza Plan: admit to PCU / telemetry / Zosyn and vancomycin pending MRSA and pancx results / IVF / Acetaminophen PRN for fever / target MAP at of least 65 to 70 / f/u Is and Os with target UOP of at least 0.5 ml/kg/H / f/u FSBS w target serum glucose 140-180 while acutely ill 2 Bronchitis 2/2 Parainfluenza Plan: Pulse ox / supplemental O2 PRN / will not give beta agonists bc of rapid afib 3 Rapid A. Fib 2/2 Sepsis Plan: telemetry / f/u serial Trops & Mg / IV Metoprolol / f/u Echo / hold DOAC bc of MAR and switch to heparin drip 4 MAR Multifactorial in nature Plan: monitor UOP / IVF / f/u renal panel, CK, Ulytes / renal US / hold Lisinopril, HTCZ and omeprazole 5 Rhabdomyolysis 2/2 fall Plan: f/u urine myoglobin / IVF /trend CPK 6 Weakness / Fall Plan: f/u phosphorus / fall precautions day time team to consult PT 7 Hypokalemia KCL ordered in ER Plan: f/u Mag 8 Worsening back pain Plan; f/u MRI lumbar spine / lidocaine patch 9 hx of PE Plan: Heparin drip 10 Essential HTN Plan: hold BP meds / she is receiving IV metoprolol for rapid a fib which will help with her BP 11 Class 3 obesity -complicates care 12 Elevated d-dimer Likely due to acute illness and advanced age Its unlikely that she has a PE bc she chronically on DOAC at home DVT n/a on heparin drip Disposition: home after at least 2 midnights stay LATE ENTRY 2:37AM The patient is still in RVR despite metoprolol and her MAP has dropped to 77; we will start amiodarone Home Medications Scheduled Apixaban (Eliquis) 5 Mg Tablet, 5 MG PO BID Cranberry Fruit Concentrate (Azo Cranberry) 250 Mg Tab.chew, 2 CHEW PO DAILY Latanoprost/Pf (Latanoprost 0.005% Eye Drop) 7.5 Ml Drops, 1 DROP OU QHS Lisinopril/Hydrochlorothiazide (Lisinopril-Hctz 10-12.5 mg Tab) 1 Each Tablet, 1 TAB PO DAILY Omeprazole (Omeprazole) 40 Mg Capsule.dr, 40 MG PO DAILY Scheduled PRN Lidocaine (Lidocaine) 5% Adh..patch, 1 PATCH TOP DAILY PRN for BACK PAIN USES ON LOWER BACK/RIGHT HIP Prednisone (Prednisone) 5 Mg Tablet, 5 MG PO BID PRN for MILD/MODERATE PAIN (PS 1-7) TAKES FOR SCIATIC PAIN FLARE-UPS Allergies Coded Allergies: No Known Allergies (Verified Allergy, Unknown, 09/01/21) A-FIB/CHADSVASC A-FIB History Current/History of A-Fib/PAF?: Yes Current PO Anticoag Therapy: No Treatment Treatment ordered: Heparin IV bridge Therapy ULISES MCGREGOR MD Sep 01, 2021 20:00
[2021-09-01] MEDS ORDERED: PIPERACILLIN/TAZOBACTAM SOD 4.5 GM in D5W MINI-BAG PLUS 50 ML IV SCH (21:00)
[2021-09-01] MEDS ORDERED: LIDOCAINE 5% (LIDODERM) PATCH TD ONE (21:00)
[2021-09-01] MEDS ORDERED: THIAMINE 100 MG TAB PO SCH (21:00)
--- NOTE | 2021-09-01 21:23 | REPVR ---
PROCEDURE INFORMATION: Exam: US Retroperitoneal Limited, Kidneys Exam date and time: 09/01/2021 9:04 PM Age: 75 years old Clinical indication: Abnormal findings; Abnormal lab test; Abnormal kidney function lab tests; Additional info: Michael TECHNIQUE: Imaging protocol: Real-time ultrasound of the retroperitoneum with image documentation. Examination was focused on the kidneys. COMPARISON: CT Chest without contrast 09/01/2021 5:58 PM FINDINGS: Right kidney: The right kidney measures 10.6 x 5.5 x 5.0 cm. No hydronephrosis, shadowing calculi, or renal mass. Left kidney: The left kidney measures 11.1 x 5.8 x 5.3 cm. No hydronephrosis, shadowing calculi or renal mass. IMPRESSION: Unremarkable examination of the kidneys. Electronically signed by: Buffy Noel On 09/01/2021 21:22:51 PM
[2021-09-01 21:48] LABS: HEMATOCRIT 42.9 % (36.0-47.0); HEMOGLOBIN 14.8 g/dl (12.0-15.5); MEAN CORPUSCULAR HEMOGLOBIN 32.5 pg (27.0-33.0); MEAN CORPUSCULAR HGB CONC 34.5 g/dl (32.0-36.5); MEAN CORPUSCULAR VOLUME 94.1 fl (80.0-96.0); PLATELET COUNT, AUTOMATED 252 10^3/uL (150-450); RED BLOOD COUNT 4.56 10^6/uL (4.00-5.40); WHITE BLOOD COUNT 15.1 10^3/uL (4.0-10.0)
[2021-09-01 21:59] LABS: INR 1.58; PROTHROMBIN TIME 19.3 SECONDS (12.7-14.5)
[2021-09-01 22:00] LABS: PARTIAL THROMBOPLASTIN TIME 38.9 SECONDS (25.9-37.0)
[2021-09-01] MEDS ORDERED: VANCOMYCIN HCL 1,000 MG, VIAL MATE ADAPTER 1 EACH in NS 250 ML IV SCH (22:00)
[2021-09-01 22:09] LABS: HEMOGLOBIN A1c 5.6 %
[2021-09-01] MEDS ORDERED: AZO1CHW PO (22:44)
[2021-09-01] MEDS ORDERED: PRED5TA PO (22:44)
[2021-09-01] MEDS ORDERED: ELIQ5TAB PO (22:44)
[2021-09-01] MEDS ORDERED: HOME MED LIST COMPLETE! XX SCH (22:45)
--- NOTE | 2021-09-01 22:46 | REPVR ---
PROCEDURE INFORMATION: Exam: MR Lumbar Spine Without Contrast Exam date and time: 09/01/2021 10:18 PM Age: 75 years old Clinical indication: Low back pain; Additional info: Back pain resulting in fall TECHNIQUE: Imaging protocol: Multiplanar magnetic resonance images of the lumbar spine without intravenous contrast. COMPARISON: RENAL US 09/01/2021 8:51 PM FINDINGS: Vertebrae: No anterior wedging deformity is seen. No acute fracture is visualized. No destructive osseous lesions are seen. Bone marrow heterogeneity is likely due to osteopenia. There is lower lumbar facet arthropathy. Facet joint effusions are seen at the L3-L4 and L4-L5 levels. Spinal epidural space: There is no epidural mass or hemorrhage identified. Spinal cord: The conus medullaris is slightly low lying, terminating at the L2-L3 disc level. The distal spinal cord is otherwise unremarkable. No cord tethering lesion is detected.The cauda equina nerve roots are normally distributed within the thecal sac, with no clumping or adhesions. T12-L1: Visualized in the sagittal plane only. Central disc protrusion causes mild central canal stenosis. L1-L2: Loss of disc height with mild diffuse spondylitic disc bulge, without significant stenosis. L2-L3: Mild right neural foraminal stenosis due to mild disc bulge and facet hypertrophy. L3-L4: Mild diffuse disc bulge causing no significant central stenosis. Mild bilateral neural foraminal stenosis. L4-L5: No significant stenosis. L5-S1: Spondylosis and facet hypertrophy causing moderate bilateral neural foraminal stenosis. IMPRESSION: 1. No acute lumbar spinal injury detected. 2. Slightly low-lying conus medullaris, as above, with no cord tethering lesion detected. 3. Lumbar facet arthropathy and mild spondylosis, causing mild central canal stenosis at T12-L1 and mild or moderate neural foraminal stenosis at several levels, as above. Electronically signed by: Buffy Noel On 09/01/2021 22:46:21 PM
[2021-09-01 23:12] LABS: HEPATITIS B CORE ANTIBODY IGM NEGATIVE (NEGATIVE); HEPATITIS B SURFACE ANTIBODY NEGATIVE (POSITIVE); HEPATITIS B SURFACE ANTIGEN NEGATIVE (NEGATIVE); PHOSPHORUS LEVEL 3.7 MG/DL (2.5-4.9); TROPONIN I 0.08 NG/ML (< 0.10)
[2021-09-02] VITALS (16 sets, daily range): BP systolic 98–125; BP diastolic 57–72; O2SAT 91–96
[2021-09-02] MEDS: SODIUM CHLORIDE 0.9% 1000ML IV STA ×2 (01:22→01:48)
[2021-09-02] MEDS ORDERED: AMIODARONE HCL 150 MG in IV 1 EA IV SCH (02:40)
[2021-09-02 02:44] LABS: HEMATOCRIT 42.7 % (36.0-47.0); HEMOGLOBIN 14.8 g/dl (12.0-15.5); MEAN CORPUSCULAR HEMOGLOBIN 32.6 pg (27.0-33.0); MEAN CORPUSCULAR HGB CONC 34.7 g/dl (32.0-36.5); MEAN CORPUSCULAR VOLUME 94.1 fl (80.0-96.0); PLATELET COUNT, AUTOMATED 258 10^3/uL (150-450); RED BLOOD COUNT 4.54 10^6/uL (4.00-5.40)
[2021-09-02] MEDS ORDERED: AMIODARONE HCL 360 MG in IV 1 EA IV SCH (03:00)
[2021-09-02 03:31] LABS: ALBUMIN 2.7 GM/DL (3.2-5.2); BILIRUBIN,TOTAL 0.7 MG/DL (0.2-1.0); CALCIUM LEVEL 9.2 MG/DL (8.8-10.2); CREATININE FOR GFR 3.2 MG/DL (0.55-1.30); GLOMERULAR FILTRATION RATE 15.1 (>39); MAGNESIUM LEVEL 1.9 MG/DL (1.8-2.4); POTASSIUM SERUM 3.5 MEQ/L (3.5-5.1); TOTAL PROTEIN 6.8 GM/DL (6.4-8.2); TROPONIN I 0.06 NG/ML (< 0.10)
[2021-09-02 07:01] LABS: OSMOLALITY URINE 394 MOSM/KG (50-1400)
[2021-09-02 07:13] LABS: POTASSIUM RANDOM URINE 70.5 MEQ/L; SODIUM,RANDOM URINE < 10 MEQ/L; TOTAL PROTEIN,RANDOM URINE 114.3 MG/DL (0.0-12.0)
[2021-09-02] MEDS: HEPARIN DRIP 25,000 UNITS in IV 1 EA IV SCH (08:42)
[2021-09-02] MEDS ORDERED: **NOTE PATIENT COMMENT** MISC XX ONE (09:00)
[2021-09-02] MEDS ORDERED: FOLIC ACID 1 MG TAB PO SCH (09:00)
[2021-09-02] MEDS ORDERED: MULTIVITAMINS/MINERALS THERAP 1 TAB PO SCH (09:00)
[2021-09-02] MEDS: NS 1,000 ML IV SCH ×3 (09:32→20:31)
[2021-09-02] MEDS: PIPERACILLIN/TAZOBACTAM SOD 4.5 GM in D5W MINI-BAG PLUS 50 ML IV SCH ×2 (09:33→17:02)
[2021-09-02] MEDS: AMIODARONE HCL 360 MG in IV 1 EA IV SCH ×2 (09:33→20:27)
[2021-09-02] MEDS ORDERED: guaiFENesin DM *SUGAR FREE* 5ML**DIABETIC TUSSIN DM PO PRN (11:55)
--- NOTE | 2021-09-02 12:11 | IPNPDOC ---
Subjective Date Seen The patient was seen on 09/02/21. Subjective Chief Complaint/HPI Patient seen and examined at bedside this morning. Continues to complain of shortness of breath as well as productive cough. She did report having a cramping sensation in her left lower leg which she feels is improving after IV fluids. She denied chest pain, abdominal pain, nausea, vomiting, problems with urination and bowel movements. Objective Physical Examination Other physical findings General: Lying in bed, no acute distress Head/Neck/Throat: Trachea midline, mucous membranes moist Eyes: Sclera anicteric, no erythema or discharge appreciated bilaterally Thorax: Normal respiratory effort on room air, lungs clear to auscultation bilaterally, no wheezes/rales/rhonchi Cardiovascular: Normal rate, regular rhythm, normal S1, S2; no S3, S4, rubs/gallops/murmurs Abdomen: Bowel sounds present, soft/nontender/nondistended Genitourinary: No CVA tenderness, no Wang in place Musculoskeletal: Moving all extremities, no edema Skin: Warm, dry Neurologic: AAOx3, speech fluent and goal-directed, no focal deficits, grossly intact Assessment /Plan Assessment #Sepsis -Secondary to parainfluenza. -Was started on Zosyn and vancomycin for concerns of possible superimposed bacterial pna. Her MRSA screen is negative, will discontinue vancomycin. -Continue IV fluids, and trend lactic acid every 4 hours until is within normal limits -Blood cx pending. F/u on sputum cx. and narrow accordingly #Bronchitis -2/2 to parainfluenza; steroid inh for symptom relief #Atrial fibrillation w/ RVR -2/2 to underlying infection. Started on amiodarone, will try to transition her to bb therapy if bp allows. -Eliquis held due to renal function, and started on heparin gtt. #MAR -poor oral intake, also received iv contrast. Continue IVF. Avoid nephrotoxic medications. #Rhabdomyolysis -Endorses falling and being on the ground. Likely the cause of her c/o cramping. IVF fluids, trend CK. #Elevated d-dimer -Likely due to acute illness and advanced age. #Weakness / Fall -Probably due to her viral infection, also deconditioning. Will ask PT to evalua te patient #Electrolyte abnormalities -Resolved. #Worsening back pain -Chronic findings appreciated on MRI of the lumbar spine. #Hx of PE -Continue with heparin gtt, until renal function is wnl #Essential HTN -Holding lisinopril/hctz due to renal function. Accetable at this time. #Class 3 obesity -complicates care #DVT ppx -offered by heparin drip Plan/VTE VTE Prophylaxis Ordered?: Yes VS, I&O, 24H, Fishbone Vital Signs/I&O Vital Signs Date Time Temp Pulse Resp B/P (MAP) Pulse Ox O2 Delivery O2 Flow Rate FiO2 09/02/21 11:00 95 Room Air 09/02/21 08:00 97.4 106 18 125/68 (87) I&O- Last 24 Hours up to 6 AM 09/02/21 05:59 Intake Total 666 ml Balance 666 ml Laboratory Data 24H LABS Laboratory Tests 2 09/01/21 15:28: Immature Granulocyte % (Auto) 0.5, Neutrophils (%) (Auto) 84.9H, Lymphocytes (%) (Auto) 6.4L, Monocytes (%) (Auto) 8.0, Eosinophils (%) (Auto) 0.0, Basophils (%) (Auto) 0.2, Neutrophils # (Auto) 10.9H, Lymphocytes # (Auto) 0.8L, Monocytes # (Auto) 1.0H, Eosinophils # (Auto) 0.0, Basophils # (Auto) 0.0, Nucleated Red Blood Cells % (auto) 0.0, Anion Gap 11, Glomerular Filtration Rate 14.4L, Calcium Level 9.1, Phosphorus Level 3.0, Magnesium Level 2.0, Total Bilirubin 0.9, Direct Bilirubin 0.2, Aspartate Amino Transf (AST/SGOT) 131H, Alanine Aminotransferase (ALT/SGPT) 47, Alkaline Phosphatase 61, Total Creatine Kinase 4085H, Creatine Kinase MB 21.8H, Creatine Kinase MB Relative Index 0.53, Troponin I 0.05, LW-Euy-U-Type Natriuretic Peptide 2309H, Total Protein 7.0, Albumin 3.1L, Albumin/Globulin Ratio 0.8L, Thyroid Stimulating Hormone (TSH) 0.619, Free Thyroxine 1.84H 09/01/21 17:25: D-Dimer, Quantitative 1513.46H 09/01/21 19:30: Lactic Acid Level 2.3*H 09/01/21 21:17: Nucleated Red Blood Cells % (auto) 0.0, Phosphorus Level 3.7#, Troponin I 0.08#, Prothrombin Time 19.3H, Prothromb Time International Ratio 1.58, Activated Partial Thromboplast Time 38.9H, Estimated Mean Plasma Glucose 114H, Hemoglobin A1c 5.6, Uric Acid 10.0H, Hepatitis B Surface Antigen NEGATIVE, Hepatitis B Leonard rface Antibody NEGATIVE, Hepatitis B Core IgM Antibody NEGATIVE, Hepatitis C Antibody Index 0.0 09/02/21 02:33: Nucleated Red Blood Cells % (auto) 0.0, Activated Partial Thromboplast Time 36.7, Anion Gap 9, Glomerular Filtration Rate 15.1L, Lactic Acid Followup at 4 Hours 3.3*H, Calcium Level 9.2, Magnesium Level 1.9, Total Bilirubin 0.7, Aspartate Amino Transf (AST/SGOT) 191H, Alanine Aminotransferase (ALT/SGPT) 58, Alkaline Phosphatase 51, Total Creatine Kinase 6870H, Troponin I 0.06#, Total Protein 6.8, Albumin 2.7L, Albumin/Globulin Ratio 0.7L 09/02/21 05:56: Bedside Glucose (Misc Panel) 112H 09/02/21 06:39: Urine Osmolality 394, Urine Random Creatinine 410.0, Urine Random Total Protein 114.3H, Urine Random Sodium < 10, Urine Random Potassium 70.5, Methicillin- Resist S.aureus DNA PCR NOT DETECTED 09/02/21 08:04: Troponin I 0.05 CBC/BMP Laboratory Tests 09/01/21 15:28 09/01/21 21:17 09/02/21 02:33 Microbiology Microbiology 09/01/21 Blood Culture, Received Pending 09/01/21 Blood Culture, Received Pending 09/01/21 Respiratory Virus Panel (PCR) (CARI) - Final, Complete Parainfluenza 3 (Piv3) AUBREE JOHNSON M.D. Sep 02, 2021 12:11
[2021-09-02] MEDS: NYSTATIN 100,000 UNITS/GM TOPICAL PWD 15 GM TOP SCH ×2 (13:35→20:30)
[2021-09-02] MEDS: METOPROLOL TART 25 MG TABLET PO SCH ×2 (14:00→20:28)
[2021-09-02] MEDS: guaiFENesin DM LIQ 10ML UD PO PRN ×2 (14:34→20:38)
[2021-09-02] MEDS ORDERED: DIGOXIN INJ 0.5 MG/2 ML AMP (J1160) IV ONE (15:20)
[2021-09-02 15:57] LABS: CALCIUM LEVEL 8.3 MG/DL (8.8-10.2); CREATININE FOR GFR 2.09 MG/DL (0.55-1.30); GLOMERULAR FILTRATION RATE 24.7 (>39); MAGNESIUM LEVEL 1.9 MG/DL (1.8-2.4); PHOSPHORUS LEVEL 3.1 MG/DL (2.5-4.9); POTASSIUM SERUM 3.4 MEQ/L (3.5-5.1)
[2021-09-02] MEDS ORDERED: POTASSIUM CHLORIDE 10MEQ SR TABLET PO ONE (16:05)
[2021-09-02] MEDS: BUDESONIDE 180MCG INHALER (PULMICORT FLEXHALER) INH SCH ×2 (20:00→22:31)
[2021-09-02] MEDS ORDERED: traMADol 50 MG TAB PO ONE (20:15)
[2021-09-02] MEDS ORDERED: LEVALBUTEROL 1.25 MG/0.5 ML CONCENTRATE NEB INH SCH (21:15)
--- NOTE | 2021-09-02 21:23 | ECGEPIP ---
[facility] Test Date: 2021-09-02 Pat Name: TONY GALLEGOS Department: Room: [place] [address] Gender: Female [employer] Operator: DICKSON : 1945 Requested By: AUBREE León Order Number: [id number] Reading MD: Дмитрий Rodriguez Measurements Intervals Issue Rate: 129 P: ND: QRS: 27 QRSD: 74 T: -8 QT: 308 QTc: 451 Interpretive Statements Atrial fibrillation with rapid ventricular response with premature ventricular or aberrantly conducted complexes Low voltage QRS Nonspecific T wave abnormality Similar to tracing done 09-01-21 Electronically Signed on 09-02-2021 21:23:08 EDT by Дмитрий Rodriguez
--- NOTE | 2021-09-02 21:46 | ECHO ---
ECHOCARDIOGRAM DATE OF PROCEDURE: 09/01/2021 Age: 75 Gender: Female Height: 165 cm Weight: 134 kilograms REFERRING PHYSICIAN: Dr. Eva Casillas INDICATION: Cardiac arrhythmia MEASUREMENTS: IVS 0.8 cm LV 5.0 cm LVPW 0.8 cm LA 3.2 cm Aorta 2.6 cm Left atrial volume index 42 IVC 2.3 FINDINGS: This study is of very difficult technical quality with limited visualization corresponding to patient's body habitus, underlying atrial fibrillation with rapid ventricular response reaching approximately 130 beats per minute and wide QRS complex. Left ventricle is normal size. There is global hypokinesis with overall estimated EF in the neighborhood of 30-35%; this is based on very poor quality views. Right ventricle also appears dilated and hypokinetic. There is severe bi-atrial enlargement. Aortic valve is mildly sclerotic, but mobility of cusps appears preserved. Mitral and tricuspid valves appear grossly normal based on limited views. Pulmonic valve was not visualized. No pericardial effusion is noted. Inferior vena cava is dilated, but it collapses with inspiration indicative of likely mildly elevated central venous pressure. Aortic root is normal. Aortic arch and abdominal aorta were not well seen. Doppler interrogation reveals no significant aortic stenosis or insufficiency. There is mild mitral and mild tricuspid insufficiency. Evaluation of diastolic function is inconclusive due to underlying atrial fibrillation with rapid ventricular response. CONCLUSIONS: 1. Study is of poor technical quality corresponding to patient's body habitus. Underlying atrial fibrillation with rapid ventricular response and wide QRS complex. 2. Normal LV size with global hypokinesis and estimated LVEF of 30-35% based on poor quality views. 3. Dilated right ventricle. 4. Severe bi-atrial enlargement. 5. No hemodynamically significant valvular disease. 6. Elevated central venous pressure. 7. Unable to estimate pulmonary artery pressure.
[2021-09-02] MEDS ORDERED: VANCOMYCIN HCL 1,000 MG, VIAL MATE ADAPTER 1 EACH in NS 250 ML IV ONE (23:00)
[2021-09-03] VITALS: BP 110/59
[2021-09-03] MEDS: PIPERACILLIN/TAZOBACTAM SOD 4.5 GM in D5W MINI-BAG PLUS 50 ML IV SCH ×2 (00:31→08:34)
[2021-09-03 04:00] VITALS: BP 96/61
[2021-09-03] MEDS: METOPROLOL TART 25 MG TABLET PO SCH ×3 (05:28→21:00)
[2021-09-03] MEDS: guaiFENesin DM LIQ 10ML UD PO PRN (05:48)
[2021-09-03] MEDS ORDERED: MORPHINE 2 MG/ML 1ML VIAL (J2270) IV ONE (07:45)
[2021-09-03] MEDS ORDERED: LEVALBUTEROL HFA 45MCG/ACT 15 GM INHALER INH SCH (08:00)
[2021-09-03 08:06] LABS: HEMATOCRIT 34.8 % (36.0-47.0); MEAN CORPUSCULAR HEMOGLOBIN 32.7 pg (27.0-33.0); MEAN CORPUSCULAR HGB CONC 34.5 g/dl (32.0-36.5); MEAN CORPUSCULAR VOLUME 94.8 fl (80.0-96.0); PLATELET COUNT, AUTOMATED 201 10^3/uL (150-450); RED BLOOD COUNT 3.67 10^6/uL (4.00-5.40); WHITE BLOOD COUNT 13.6 10^3/uL (4.0-10.0)
[2021-09-03 08:17] LABS: CREATININE FOR GFR 1.3 MG/DL (0.55-1.30); GLOMERULAR FILTRATION RATE 42.7 (>39); MAGNESIUM LEVEL 1.8 MG/DL (1.8-2.4); PHOSPHORUS LEVEL 2.6 MG/DL (2.5-4.9); POTASSIUM SERUM 3.4 MEQ/L (3.5-5.1)
[2021-09-03] MEDS: IPRATROPIUM 0.02% SOLN 0.5MG 2.5ML NEB INH SCH ×2 (08:23→13:22)
[2021-09-03] MEDS: LEVALBUTEROL 1.25 MG/0.5 ML CONCENTRATE NEB INH SCH ×2 (08:23→13:22)
[2021-09-03 08:27] VITALS: BP 106/75
[2021-09-03] MEDS: NYSTATIN 100,000 UNITS/GM TOPICAL PWD 15 GM TOP SCH ×2 (08:34→21:00)
[2021-09-03] MEDS: HEPARIN DRIP 25,000 UNITS in IV 1 EA IV SCH (09:10)
[2021-09-03] MEDS ORDERED: DIGOXIN INJ 0.5 MG/2 ML AMP (J1160) IV ONE ×2 (10:30→17:00)
[2021-09-03] MEDS ORDERED: traMADol 50 MG TAB PO ONE (11:00)
[2021-09-03] MEDS: methylPREDNISolone 40MG 1ML VIAL IV SCH (11:20)
--- NOTE | 2021-09-03 11:25 | IPNPDOC ---
Subjective Date Seen The patient was seen on 09/03/21. Subjective Chief Complaint/HPI Patient was seen and examined at bedside this morning. She endorsed having improvement in her shortness of breath, especially after receiving the budesonide inhaler treatment. However, this morning she endorses having left leg weakness that she says was present on the day of admission as well. She reports she is unable to lift leg off the bed. She denies sensory changes. Overnight no acute events reported. Objective Physical Examination Other physical findings General: Lying in bed, no acute distress Head/Neck/Throat: Trachea midline, mucous membranes moist Eyes: Sclera anicteric, no erythema or discharge appreciated bilaterally Thorax: Bronchospastic and wheezing bilaterally Cardiovascular: Normal rate, regular rhythm, normal S1, S2; no S3, S4, rubs/gallops/murmurs Abdomen: Bowel sounds present, soft/nontender/nondistended Genitourinary: No CVA tenderness, no Wang in place Musculoskeletal: Moving all extremities, no edema Skin: Warm, dry Neurologic: Awake, alert, oriented x3, strength in the upper extremities is 5/5. Strength in the right lower extremity is 5/5. Strength in the left lower extremity is 3/5, however there was also poor effort from the patient from trying to lift her leg off the examination bed. Sensation to gross touch in the upper and lower extremity is intact. Assessment /Plan Assessment #Left leg weakness -There was no acute path. seen on ct-scan of the head. Chronic stenosis on MRI of the lumbar spine. Will obtain MRI of the brain. #Sepsis -Secondary to parainfluenza. -Was started on Zosyn and vancomycin for concerns of possible superimposed bacterial pna. Her MRSA screen is negative, will narrow antibiotics. -Continue IV fluids. Lactic acid is now within normal limits. -Blood cx pending. F/u on sputum cx. -Follow-up procalcitonin level, if not elevated will discontinue antibiotics. #Bronchitis -2/2 to parainfluenza; this morning she was bronchospastic and wheezing we will add neb treatments in addition to her budesonide inhaler as well as steroids. #Atrial fibrillation w/ RVR -2/2 to underlying infection. -She is unable to tolerate her bb therapy due to her low blood pressure. Amio was given but due to s/e profile we will try digoxin. -Eliquis held due to renal function, and started on heparin gtt. #MAR -2/2 to poor oral intake, also received iv contrast with ct scan. -Resolved #Rhabdomyolysis -Endorses falling and being on the ground. Likely the cause of her c/o cramping. IVF fluids, trend CK. #Elevated d-dimer -Likely due to acute illness and advanced age. #Weakness / Fall -Probably due to her viral infection, also deconditioning. Will ask PT to evaluate patient #Electrolyte abnormalities -Resolved. #Worsening back pain -Chronic findings appreciated on MRI of the lumbar spine. #Hx of PE -Continue with heparin gtt, until renal function is wnl #Essential HTN -Holding lisinopril/hctz due to renal function. Accetable at this time. #Class 3 obesity -complicates care #DVT ppx -offered by heparin drip Plan/VTE VTE Prophylaxis Ordered?: Yes VS, I&O, 24H, Fishbone Vital Signs/I&O Vital Signs Date Time Temp Pulse Resp B/P (MAP) Pulse Ox O2 Delivery O2 Flow Rate FiO2 09/03/21 08:27 96.8 104 22 106/75 (85) 91 Room Air 09/02/21 13:38 I&O- Last 24 Hours up to 6 AM 09/03/21 06:00 Intake Total 2511.68 ml Output Total 850 ml Balance 1661.68 ml Laboratory Data 24H LABS Laboratory Tests 2 09/02/21 12:00: Bedside Glucose (Misc Panel) 113H 09/02/21 13:24: 09/02/21 15:04: Activated Partial Thromboplast Time > 240.0*H, Anion Gap 12, Glomerular Filtration Rate 24.7L, Lactic Acid Level 2.0, Calcium Level 8.3L, Phosphorus Level 3.1, Magnesium Level 1.9 09/02/21 18:47: 09/02/21 23:04: Activated Partial Thromboplast Time 148.5*H 09/03/21 07:34: Anion Gap 9, Glomerular Filtration Rate 42.7, Calcium Level 8.0L, Phosphorus Level 2.6, Magnesium Level 1.8 09/03/21 07:35: Activated Partial Thromboplast Time 51.4H, Nucleated Red Blood Cells % (auto) 0.0 CBC/BMP Laboratory Tests 09/02/21 15:04 09/03/21 07:34 09/03/21 07:35 Microbiology Microbiology 09/02/21 Blood Culture, Received Pending 09/02/21 Blood Culture, Received Pending 09/01/21 Blood Culture - Preliminary, Resulted 09/01/21 Blood Culture - Preliminary, Resulted No growth after 24 hours . All specim... 09/01/21 Respiratory Virus Panel (PCR) (CARI) - Final, Complete Parainfluenza 3 (Piv3) AUBREE JOHNSON M.D. Sep 03, 2021 11:25
[2021-09-03 11:42] VITALS: BP 109/63
[2021-09-03] MEDS ORDERED: POTASSIUM CHLORIDE 10MEQ SR TABLET PO ONE ×2 (12:00→13:00)
[2021-09-03] MEDS: BUDESONIDE 180MCG INHALER (PULMICORT FLEXHALER) INH SCH (12:07)
[2021-09-03] MEDS: NS 1,000 ML IV SCH ×2 (12:46→22:37)
[2021-09-03] MEDS ORDERED: PIPERACILLIN/TAZOBACTAM SOD 4.5 GM in D5W MINI-BAG PLUS 50 ML IV SCH (15:00)
[2021-09-03 15:59] VITALS: BP 127/88
--- NOTE | 2021-09-03 17:30 | REPVR ---
PROCEDURE INFORMATION: Exam: MR Head Without Contrast Exam date and time: 09/03/2021 2:46 PM Age: 75 years old Clinical indication: Pain; Other: Left leg weakness TECHNIQUE: Imaging protocol: MR of the head without contrast. COMPARISON: CT Head without contrast 09/01/2021 5:58 PM FINDINGS: Brain: There is no acute intracranial hemorrhage, cerebral edema, or midline shift. No restricted diffusion is present to suggest acute infarction. Mild chronic small vessel ischemic disease is present in the cerebral white matter. Cerebral ventricles: No hydrocephalus. Bones/joints: Unremarkable. Paranasal sinuses: There is mild mucosal thickening noted within the paranasal sinuses. Mastoid air cells: The mastoid air cells are clear. Orbital cavity: Unremarkable. Soft tissues: Unremarkable. IMPRESSION: 1. No acute abnormality. 2. Chronic findings as discussed above. Electronically signed by: Ronald Darnell On 09/03/2021 17:30:13 PM
[2021-09-03] MEDS: cefTRIAXone SOD 1 GM in D5W MINI-BAG PLUS 50 ML IV SCH (18:12)
[2021-09-03 20:00] VITALS: BP 136/85
[2021-09-03] MEDS ORDERED: ACETYLCYSTEINE 10% 30 ML VIAL INH SCH (20:00)
[2021-09-03] MEDS: DOXYCYCLINE HYCLATE 100MG TABLET PO SCH (20:59)
[2021-09-04] VITALS: BP 128/72
[2021-09-04 04:00] VITALS: BP 129/85
[2021-09-04] MEDS: METOPROLOL TART 25 MG TABLET PO SCH ×3 (05:21→22:16)
[2021-09-04 06:31] LABS: HEMATOCRIT 36.2 % (36.0-47.0); HEMOGLOBIN 12.2 g/dl (12.0-15.5); MEAN CORPUSCULAR HEMOGLOBIN 31.8 pg (27.0-33.0); MEAN CORPUSCULAR HGB CONC 33.7 g/dl (32.0-36.5); MEAN CORPUSCULAR VOLUME 94.3 fl (80.0-96.0); PLATELET COUNT, AUTOMATED 234 10^3/uL (150-450); RED BLOOD COUNT 3.84 10^6/uL (4.00-5.40)
[2021-09-04] MEDS: guaiFENesin DM LIQ 10ML UD PO PRN ×2 (06:47→17:43)
[2021-09-04 07:25] LABS: BLOOD UREA NITROGEN 22 MG/DL (7-18); CALCIUM LEVEL 8.4 MG/DL (8.8-10.2); CARBON DIOXIDE LEVEL 25 MEQ/L (21-32); CHLORIDE LEVEL 106 MEQ/L (98-107); CPK CREATINE PHOSPHOKINASE 1117 U/L (26-192); CREATININE FOR GFR 0.91 MG/DL (0.55-1.30); GLOMERULAR FILTRATION RATE > 60.0 (>39); GLUCOSE, FASTING 114 MG/DL (70-100); MAGNESIUM LEVEL 1.9 MG/DL (1.8-2.4); PHOSPHORUS LEVEL 2.3 MG/DL (2.5-4.9); POTASSIUM SERUM 4.2 MEQ/L (3.5-5.1); SODIUM LEVEL 137 MEQ/L (136-145)
[2021-09-04 08:00] VITALS: BP 117/77
[2021-09-04] MEDS: BUDESONIDE 180MCG INHALER (PULMICORT FLEXHALER) INH SCH ×2 (08:04→20:19)
[2021-09-04] MEDS: IPRATROPIUM 0.02% SOLN 0.5MG 2.5ML NEB INH SCH ×3 (08:04→20:19)
[2021-09-04] MEDS: methylPREDNISolone 40MG 1ML VIAL IV SCH (09:58)
[2021-09-04] MEDS: DIGOXIN 0.125 MG TAB PO SCH (09:58)
[2021-09-04] MEDS: DOXYCYCLINE HYCLATE 100MG TABLET PO SCH ×2 (09:58→20:46)
[2021-09-04] MEDS: NYSTATIN 100,000 UNITS/GM TOPICAL PWD 15 GM TOP SCH ×2 (09:59→20:46)
[2021-09-04 12:00] VITALS: BP 126/61
[2021-09-04] MEDS: HEPARIN DRIP 25,000 UNITS in IV 1 EA IV SCH (12:59)
[2021-09-04] MEDS: NS 1,000 ML IV SCH ×2 (13:00→22:17)
--- NOTE | 2021-09-04 14:29 | REP ---
INDICATION: r/o dvt COMPARISON: None. TECHNIQUE: Real time compression and duplex Doppler interrogation of the bilateral lower extremity deep venous system is performed. Compression ultrasound is performed of the bilateral peroneal and posterior tibial veins. FINDINGS: Bilaterally, the common femoral, superficial femoral and popliteal veins are fully compressible with transducer pressure and demonstrate normal spontaneous and phasic flow, without evidence of deep venous thrombosis. No thrombus is seen in the bilateral visualized portions of the posterior tibial veins. Peroneal veins could not be visualized bilaterally. There is a complex Burch's cyst on the right 7.2 x 1.5 x 2.9 cm and another on the left 7.2 x 2.2 x 3.1 cm. IMPRESSION: No evidence of deep venous thrombosis of the bilateral lower extremity femoral popliteal venous system. Bilateral complex Burch's cysts. <Electronically signed by Pako Vee > 09/04/21 [id number]
--- NOTE | 2021-09-04 15:06 | IPNPDOC ---
Subjective Date Seen The patient was seen on 09/04/21. Subjective Chief Complaint/HPI Patient seen and examined at bedside this morning. She reports improvement in her breathing however continues to complain if a left foot drop that was present during admission. She also reports having wryp-slr-smuyvha sensation in the foot. This decided she fell on and was found laying on. Overnight no acute events reported per Other systems 10 point review of system was negative except for what is noted in the HPI Objective Physical Examination Other physical findings General: Lying in bed, no acute distress Head/Neck/Throat: Trachea midline, mucous membranes moist Eyes: Sclera anicteric, no erythema or discharge appreciated bilaterally Thorax: Bronchospastic and wheezing bilaterally Cardiovascular: Normal rate, regular rhythm, normal S1, S2; radial and dorsalis pedis pulses 2+ bilaterally. Bilateral pedal edema Abdomen: Bowel sounds present, soft/nontender/nondistended Genitourinary: No CVA tenderness, no Wang in place Musculoskeletal: Moving all extremities, no edema Skin: Warm, dry Neurologic: Awake, alert, oriented x3, strength in the upper extremities is 5/5. Strength in the right lower extremity is 5/5. Strength in the left lower extremity is 3/5, however there was also poor effort from the patient from trying to lift her leg off the examination bed. Sensation to gross touch in the upper and lower extremity is intact. Assessment /Plan Assessment #Left foot drop -MRI negative for stroke. Discussed with neurology likely peroneal nerve compression from her laying on the same side from the time she fell. #Sepsis -Secondary to parainfluenza and superimposed pna. -Narrowed antibiotics to ceftriaxone and doxy. awaiting sputum cx. -Blood cx x 1 positive for staph. hominis ? Contaminant, will obtain infectious disease input. Repeat blood cultures are negative thus far. -Continue IV fluids. Lactic acid is now within normal limits. #Bronchitis -2/2 to parainfluenza; continue with current neb treatments and steroids #Atrial fibrillation w/ RVR -2/2 to underlying infection. -Continue with beta-blockers as well as digoxin that was added to better control her heart rate. -Renal function is now within normal limits, will resume Eliquis. #MAR -Resolved. This was 2/2 to poor oral intake, also received iv contrast with ct scan. #Rhabdomyolysis -Endorses falling and being on the ground. Likely the cause of her c/o cramping. IVF fluids, trend CK which is downtrending. #Elevated d-dimer -Likely due to acute illness and advanced age. #Weakness / Fall -Probably due to her viral infection, also deconditioning. Will ask PT to evaluate patient #Electrolyte abnormalities -Hypophosphatemia, replete. #Worsening back pain -Chronic findings appreciated on MRI of the lumbar spine. #Hx of PE -Resume Mayank #Essential HTN -Holding lisinopril/hctz to make room for her beta-celia to control her heart rate #Class 3 obesity -complicates care #DVT ppx -Offered by [facility]. Plan/VTE VTE Prophylaxis Ordered?: Yes VS, I&O, 24H, Fishbone Vital Signs/I&O Vital Signs Date Time Temp Pulse Resp B/P (MAP) Pulse Ox O2 Delivery O2 Flow Rate FiO2 09/04/21 09:58 108 09/04/21 04:00 97.4 20 129/85 (100) 94 Room Air 09/02/21 13:38 I&O- Last 24 Hours up to 6 AM 09/04/21 06:00 Intake Total 2190 ml Output Total 1025 ml Balance 1165 ml Laboratory Data 24H LABS Laboratory Tests 2 09/03/21 16:02: Activated Partial Thromboplast Time 70.0H 09/03/21 22:29: Activated Partial Thromboplast Time 73.3H 09/03/21 22:30: Urine Color YELLOW, Urine Appearance TURBIDH, Urine pH 5.0, Urine Specific [place] 1.024, Urine Protein 2+H, Urine Glucose (UA) 1+H, Urine Ketones TRACEH, Urine Blood 3+H, Urine Nitrite NEGATIVE, Urine Bilirubin NEGATIVE, Urine Urobilinogen 0.2, Urine Leukocyte Esterase 1+H, Urine WBC (Auto) 10H, Urine RBC (Auto) TNTCH, Urine Hyaline Casts (Auto) 0, Urine Bacteria (Auto) NEGATIVE, Urine Squamous Epithelial Cells 0, Urine Mucus (Auto) SMALL, Urine Sperm (Auto) 09/04/21 06:17: Activated Partial Thromboplast Time 80.2H, Nucleated Red Blood Cells % (auto) 0.0, Anion Gap 6L, Glomerular Filtration Rate > 60.0, Calcium Level 8.4L, Phosphorus Level 2.3L, Magnesium Level 1.9, Total Creatine Kinase 1117H CBC/BMP Laboratory Tests 09/04/21 06:17 Microbiology Microbiology 09/03/21 Urine Culture, Received Pending 09/02/21 Blood Culture - Preliminary, Resulted No growth after 24 hours . All specim... 09/02/21 Blood Culture - Preliminary, Resulted No growth after 24 hours . All specim... 09/01/21 Blood Culture - Final, Complete Staphylococcus Hominis Ssp Joel 09/01/21 Blood Culture - Preliminary, Resulted No Growth after 48 hours. All Specime... 09/01/21 Respiratory Virus Panel (PCR) (CARI) - Final, Complete Parainfluenza 3 (Piv3) AUBREE JOHNSON M.D. Sep 04, 2021 15:06
[2021-09-04 16:00] VITALS: BP_SYST 126; BP_SYST 134; BP_DIAS 61; BP_DIAS 86
[2021-09-04] MEDS ORDERED: SODIUM PHOSPHATE INJ 20 MMOL in D5W 250 ML IV ONE (17:00)
[2021-09-04] MEDS: LACTOBACILLUS ACIDOPHILUS CAP (BACID) PO SCH (17:41)
[2021-09-04] MEDS: cefTRIAXone SOD 1 GM in D5W MINI-BAG PLUS 50 ML IV SCH (17:44)
[2021-09-04 19:08] LABS: BODY FLUID CULTURE Not indicated. (.); LEGIONELLA ANTIGEN URINE Negative (Negative); ORGANISM ID Not indicated. (.); SPECIMEN SOURCE Urine (.); URINE STREP PNEUMONIAE ANTIGEN Negative (Negative)
[2021-09-04 20:00] VITALS: BP 130/78
[2021-09-04] MEDS: APIXABAN 5 MG TAB (ELIQUIS) PO SCH (20:46)
[2021-09-05] VITALS: BP 135/87
[2021-09-05] MEDS: IPRATROPIUM 0.02% SOLN 0.5MG 2.5ML NEB INH SCH ×4 (01:29→19:21)
[2021-09-05 04:11] VITALS: BP 136/90
[2021-09-05] MEDS: NS 1,000 ML IV SCH (04:30)
[2021-09-05] MEDS: METOPROLOL TART 25 MG TABLET PO SCH ×3 (05:46→20:24)
[2021-09-05 06:30] LABS: HEMATOCRIT 35.8 % (36.0-47.0); HEMOGLOBIN 12.1 g/dl (12.0-15.5); MEAN CORPUSCULAR HEMOGLOBIN 32.2 pg (27.0-33.0); MEAN CORPUSCULAR HGB CONC 33.8 g/dl (32.0-36.5); MEAN CORPUSCULAR VOLUME 95.2 fl (80.0-96.0); PLATELET COUNT, AUTOMATED 290 10^3/uL (150-450); RED BLOOD COUNT 3.76 10^6/uL (4.00-5.40); WHITE BLOOD COUNT 12.3 10^3/uL (4.0-10.0)
[2021-09-05 06:59] LABS: BLOOD UREA NITROGEN 24 MG/DL (7-18); CALCIUM LEVEL 8.9 MG/DL (8.8-10.2); CARBON DIOXIDE LEVEL 24 MEQ/L (21-32); CHLORIDE LEVEL 109 MEQ/L (98-107); CREATININE FOR GFR 0.81 MG/DL (0.55-1.30); GLOMERULAR FILTRATION RATE > 60.0 (>39); GLUCOSE, FASTING 93 MG/DL (70-100); MAGNESIUM LEVEL 1.9 MG/DL (1.8-2.4); PHOSPHORUS LEVEL 3.2 MG/DL (2.5-4.9); POTASSIUM SERUM 4.1 MEQ/L (3.5-5.1); SODIUM LEVEL 139 MEQ/L (136-145)
[2021-09-05] MEDS: BUDESONIDE 180MCG INHALER (PULMICORT FLEXHALER) INH SCH ×2 (07:23→19:23)
[2021-09-05 08:00] VITALS: BP 148/92
[2021-09-05] MEDS: LACTOBACILLUS ACIDOPHILUS CAP (BACID) PO SCH (09:40)
[2021-09-05] MEDS: DIGOXIN 0.125 MG TAB PO SCH (09:41)
[2021-09-05] MEDS: APIXABAN 5 MG TAB (ELIQUIS) PO SCH ×2 (09:42→20:23)
[2021-09-05] MEDS: DOXYCYCLINE HYCLATE 100MG TABLET PO SCH ×2 (09:42→20:23)
[2021-09-05] MEDS: NYSTATIN 100,000 UNITS/GM TOPICAL PWD 15 GM TOP SCH ×2 (09:43→20:24)
--- NOTE | 2021-09-05 09:43 | CR ---
CONSULTATION DATE OF CONSULTATION: 09/04/2021 REFERRING PHYSICIAN: Kobe Silver MD REASON FOR CONSULTATION: Left leg weakness. HISTORY OF PRESENT ILLNESS: Patient is a 75-year-old woman who was admitted at [facility] due to shortness of breath, coughing that started around 08/25/2021. She had productive cough with sputum. Her appetite was poor for last week. She was mostly drinking gianni tavares and was not eating. She woke up on the morning of 09/01/2021 around 1 a.m. and was trying to stand up with her cane when she felt a cramping sensation in her left leg and fell down. She states that she laid on the floor on the left side, unable to get up, for 10 hours and her found her around 11 a.m. She has a history of chronic back pain which radiates down her right leg and she has sciatica on the right side. Since her fall on 09/01/2021, she has been feeling her left leg is numb and weak. She is unable to move her foot up and down. She feels numbness and tingling on bottom and top of her left foot. She denies any headaches, neck pain, dysphagia, dysarthria, diplopia, urinary incontinence, loss of consciousness. She was laying on the floor for 10 hours as described above on the day of admission. REVIEW OF SYSTEMS: All systems were reviewed and were found to be noncontributory except as mentioned in history of present illness. PAST MEDICAL HISTORY: Atrial fibrillation, history of pulmonary embolism, essential hypertension, obesity, chronic back pain, sciatica on right side, hiatal hernia, tubal ligation, tonsillectomy. FAMILY HISTORY: Mother and sister with chronic obstructive pulmonary disease (COPD). Father had coronary artery disease. SOCIAL HISTORY: She denies smoking, alcohol, or illicit drugs. She drinks an occasional glass of wine. HOME MEDICATIONS: - Eliquis 5 mg by mouth twice a day - latanoprost eye drops - cranberry juice - lisinopril/hydrochlorothiazide 10/12.5 mg by mouth daily - omeprazole 40 mg by mouth daily - lidocaine patch as needed - prednisone 5 mg by mouth twice a day as needed for severe pain ALLERGIES: None. PHYSICAL EXAMINATION: Temperature 100.8 on the day of admission, pulse 160, respiratory rate 18, blood pressure 116/70. Heart: Irregularly irregular. Lungs: Clear to auscultation. Abdomen: Soft, nontender, nondistended. No pedal edema. No musculoskeletal abnormalities. No rash. No signs of meningeal irritation. Patient is awake, alert, oriented to place, person, and time. Normal speech, comprehension, and repetition. Extraocular muscles are intact. No facial weakness. Tongue and uvula are midline. No dysmetria, nystagmus, or tremor. 5/5 strength in both arms and right leg. Strength in her left foot plantar flexion is 2/5 and dorsiflexion 0/5. She has numbness, tingling, and lack of cold, touch, vibration sensation in her left foot. Rest of sensation in other body parts is intact. Deep tendon reflexes are 1+ in arms and absent in legs. DIAGNOSTIC STUDIES: MRI scan of brain showed small vessel ischemic disease of brain. MRI scan of lumbosacral spine showed multilevel degenerative disc disease of lumbosacral spine which are chronic findings without any acute disease. ASSESSMENT: 1. 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 Compressive sciatic neuropathy usually affects peroneal branch more than tibial branch. 2. Multilevel lumbosacral degenerative disc disease on MRI scan of lumbosacral spine with chronic back pain and sciatica on right side which is likely not contributing to her current problem. 3. Influenza for which patient is being treated currently. PLAN: 1. Physical and occupational therapy. 2. Left foot ankle foot orthosis (AFO) is recommended. 3. Use walker and cane as necessary. 4. EMG/nerve conduction study of legs on outpatient basis to confirm left sciatic compressive neuropathy, its severity and prognosis. 5. Follow with our office in 1-2 weeks after hospital discharge.
[2021-09-05] MEDS: methylPREDNISolone 40MG 1ML VIAL IV SCH (09:44)
--- NOTE | 2021-09-05 12:40 | CR ---
CONSULTATION DATE: 09/04/2021 HISTORY OF PRESENT ILLNESS: Aysha is a 75-year-old female who presented to the emergency room after a fall at home. She reports that she had been feeling sick with upper respiratory symptoms that she suspected with sinus congestion due to seasonal allergies. She states that she gets these symptoms around this time every year and typically recovers with supportive care. She reports that she was at a wedding on 08/23/2021 and started developing her sinus congestion on the following 08/25/2021. She continued to have sinus congestion with cough and headache over that week. She also reports intermittent chills without any documented fever at home. On Wednesday09/01/2021 she fell due to imbalance. She could not get herself off the ground which she states may have been due to hurting her left leg but she also has difficulty getting herself up off the ground at baseline. Her was still up at their camp in [place], [place] and she did not have her phone with her when she fell. She states that when her got home later that evening he helped her up and she went to the emergency room. Since the fall she has been having numbness and decreased sensation in the left leg. She also reports weakness, especially in ankle dorsiflexion and plantarflexion of the left foot. She denies any sick contacts or recent travel. On admission to the hospital she was found to be tachycardic with atrial fibrillation with RVR. She was also found to have a fever of 100.8 degrees Fahrenheit and elevated white blood cell count of 12.9. She was initially started on IV antibiotics with Vancomycin and Zosyn for sepsis. Her respiratory panel showed parainfluenza virus infection. PAST MEDICAL HISTORY: Persistent atrial fibrillation, history of pulmonary embolism, hypertension, obesity, chronic back pain with sciatica, hiatal hernia. PAST SURGICAL HISTORY: Tubal ligation, tonsillectomy and adenoidectomy. FAMILY MEDICAL HISTORY: She has a mother and sister with COPD who were both smokers. Father of heart attack. Her son of colon cancer. SOCIAL HISTORY: She states that she is used to be a social smoker when she would drink and smoke typically less than a pack per year overall. She denies smoking in the past 20 years. She has a glass of wine now and then when she feels like it, typically not more than one per week. She denies any history of illicit substance use. She is retired and formerly worked for [employer]. ALLERGIES: NONE. HOME MEDICATIONS: 1. Eliquis 5 mg twice daily. 2. Latanoprost eyedrops, one drop per eye at bedtime. 3. Lidocaine patch topically on the lower back as needed for pain. 4. Lisinopril 10 mg daily. 5. Hydrochlorothiazide 12.5 mg daily. 6. Omeprazole 40 mg daily. 7. Prednisone 5 mg one to two tablets as needed for pain. REVIEW OF SYSTEMS: General: Denies fevers, reports chills. Denies sweats or change in weight. HEENT: Denies headache or vision change. Respiratory: Endorses shortness of breath and dry cough. Denies hemoptysis. Cardiac: Reports chest tightness, denies palpitations. Gastrointestinal: Reports some diarrhea since starting antibiotics. Denies abdominal pain, nausea, vomiting, blood in stool. Skin: Patient denies new rash. Musculoskeletal: Endorses left leg pain and lower back pain. Neurologic: Endorses weakness per HPI in left foot and numbness per HPI in left foot. PHYSICAL EXAMINATION: VITAL SIGNS: Temperature 97.4 degrees Fahrenheit temporal, heart rate 112, respiratory rate 20, blood pressure 134/86, satting 94% on room air. GENERAL: Patient appears comfortable, sitting up in bed in no acute distress. HEENT: Normocephalic, atraumatic. Moist mucous membranes. No lesions in the mouth, no sinus tenderness appreciated. NECK: Supple, no lymphadenopathy. LUNGS: There is some mild upper airway wheezing which does not extend into the lower lung harvey. Bilateral breath sounds are somewhat distant but clear to auscultation bilaterally. CARDIAC: Irregularly irregular rhythm with tachycardia. ABDOMEN; Obese, soft, nontender, nondistended. Bowel sounds present. EXTREMITIES: 1+ pitting edema up to the knees bilaterally. Pulses 2+ in bilateral dorsalis pedis arteries. NEUROLOGIC: Weakness in dorsiflexion and plantarflexion in left foot. 5/5 strength in dorsiflexion and plantarflexion of right foot. There is decreased sensation over the left lower extremity. Normal sensation in the right lower extremity. LABORATORY DATA: White blood cell count 14.0, hemoglobin 12.2, hematocrit 36.2, platelet count 235. Sodium 137, potassium 4.2, chloride 106, bicarb 25, BUN 22, creatinine 0.91, glucose 114, calcium 8.4, phosphorus 2.3, magnesium 1.9. Total creatinine kinase 1117. Procalcitonin from 09/02/2021 is 15.74. MRSA PCR negative. Urine Legionella antigen pending. Strep pneumonia antigen urine pending. Microbiology respiratory panel positive for parainfluenza virus 3. Blood cultures x1 on 08/22/2021 positive for Staphylococcus hominis. There is a second blood culture from 09/01/2021 which is negative at 48 hours. Repeat blood cultures from 09/02/2021 x2 are both negative at 24 hours. IMAGING DATA: CT chest from 09/01/2021 shows right upper lobe pneumonitis, bronchitis, large hiatal hernia and ectatic ascending aorta. ASSESSMENT AND PLAN: 75-year-old female who presented to the hospital after a fall with one week of upper respiratory symptoms, found to be positive for viral upper respiratory infection with parainfluenza virus and suspected to have superimposed bacterial infection. At this point she has not been able to produce a sputum culture because she is not producing any sputum for the duration of her symptoms. Her procalcitonin two days ago was positive at 15.74, increasing suspicion for at least superimposed community-acquired bacteria. Her antibiotics have already been de-escalated from Vancomycin and Zosyn to Ceftriaxone and Doxycycline which is appropriate coverage for community-acquired pneumonia. Would recommend continuing antibiotics for 7 days. Currently the antibiotics are ordered to stop on September 08, 2021 which would be 7 days total of antibiotic therapy. I encourage the patient to continue to work on producing sputum culture to help us identify an organism if possible. Otherwise, we will repeat the procalcitonin tomorrow to see if this is trending down. She does take steroids at home intermittently. However, the dosage she takes is 10 mg or less per day when she uses it and she does not use it everyday. This is not an immunosuppressant dose and likely did not contribute much to her overall symptomatology and infection risk. We will continue to follow along this patient. Thank you for the consultation.
[2021-09-05] MEDS ORDERED: FUROSEMIDE 20MG/2ML VIAL (J1940) IV ONE (13:50)
--- NOTE | 2021-09-05 14:14 | IPNPDOC ---
Subjective Date Seen The patient was seen on 09/05/21. Subjective Chief Complaint/HPI Patient was seen and examined at bedside this morning. She reports significant improvement in her breathing. Denies headaches, chest pain, sob, abdominal pain, n/v, and problems with urination and bowel movements. Objective Physical Examination Other physical findings eneral: Lying in bed, no acute distress Head/Neck/Throat: Trachea midline, mucous membranes moist Eyes: Sclera anicteric, no erythema or discharge appreciated bilaterally Thorax: Bronchospastic and wheezing bilaterally Cardiovascular: Normal rate, regular rhythm, normal S1, S2; radial and dorsalis pedis pulses 2+ bilaterally. Bilateral pedal edema Abdomen: Bowel sounds present, soft/nontender/nondistended Genitourinary: No CVA tenderness, no Wang in place Musculoskeletal: Moving all extremities, no edema Skin: Warm, dry Neurologic: Awake, alert, oriented x3, strength in the upper extremities is 5/5. Strength in the right lower extremity is 5/5. Strength in the left lower extremity is 5/5 but there is a left foot drop appreciated. Sensation to gross touch in the upper and lower extremity is intact. Assessment /Plan Assessment #Left foot drop -MRI negative for stroke. Likely compression of the sciatic nerve from lying on the floor. -Appreciate neuro recommendations. #Sepsis -Secondary to parainfluenza and superimposed pna. -Narrowed antibiotics to cefdinir and doxycycline; appreciate ID input. #Bronchitis -2/2 to parainfluenza; continue with current neb treatments and steroid taper #Atrial fibrillation w/ RVR -2/2 to underlying infection. -Continue with beta-blockers as well as digoxin that was added to better control her heart rate. -Renal function is now within normal limits, will resume Eliquis. #MAR -Resolved. This was 2/2 to poor oral intake, also received iv contrast with ct scan. #Rhabdomyolysis -Endorses falling and being on the ground. Likely the cause of her c/o cramping. IVF fluids, trend CK which is downtrending. #Elevated d-dimer -Likely due to acute illness and advanced age. #Weakness / Fall -Probably due to her viral infection, also deconditioning. Will ask PT to evaluate patient #Electrolyte abnormalities -Hypophosphatemia, replete. #Worsening back pain -Chronic findings appreciated on MRI of the lumbar spine. #Hx of PE -Resume Mayank #Essential HTN -Holding lisinopril/hctz to make room for her beta-celia to control her heart rate #Class 3 obesity -complicates care #DVT ppx -Offered by [facility]. Plan/VTE VTE Prophylaxis Ordered?: Yes VS, I&O, 24H, Fishbone Vital Signs/I&O Vital Signs Date Time Temp Pulse Resp B/P (MAP) Pulse Ox O2 Delivery O2 Flow Rate FiO2 09/05/21 09:41 120 09/05/21 08:00 98.4 18 148/92 (110) 96 Room Air 09/02/21 13:38 I&O- Last 24 Hours up to 6 AM 09/05/21 06:00 Intake Total 1955 ml Output Total 950 ml Balance 1005 ml Laboratory Data 24H LABS Laboratory Tests 2 09/05/21 05:45: Nucleated Red Blood Cells % (auto) 0.0, Activated Partial Thromboplast Time 35 .6, Anion Gap 6L, Glomerular Filtration Rate > 60.0, Calcium Level 8.9, Phosphorus Level 3.2#, Magnesium Level 1.9, Procalcitonin 1.98 CBC/BMP Laboratory Tests 09/05/21 05:45 Microbiology Microbiology 09/04/21 Stool Occult Blood (CARI) - Final, Complete 09/03/21 Urine Culture, Received Pending 09/02/21 Blood Culture - Preliminary, Resulted No Growth after 48 hours. All Specime... 09/02/21 Blood Culture - Preliminary, Resulted No Growth after 48 hours. All Specime... 09/01/21 Blood Culture - Final, Complete Staphylococcus Hominis Ssp Joel 09/01/21 Blood Culture - Preliminary, Resulted No Growth after 72 hours. All specime... 09/01/21 Respiratory Virus Panel (PCR) (CARI) - Final, Complete Parainfluenza 3 (Piv3) AUBREE JOHNSON M.D. Sep 05, 2021 14:14
[2021-09-05] MEDS ORDERED: DIGOXIN 0.125 MG TAB PO ONE (15:00)
[2021-09-05 16:00] VITALS: BP 148/88
[2021-09-05 20:00] VITALS: BP 123/85
[2021-09-05] MEDS: CEFDINIR 300 MG CAP (OMNICEF) PO SCH (20:23)
[2021-09-06] VITALS (7 sets, daily range): BP systolic 112–189; BP diastolic 75–93
[2021-09-06] MEDS: IPRATROPIUM 0.02% SOLN 0.5MG 2.5ML NEB INH SCH ×2 (01:23→07:27)
[2021-09-06] MEDS: METOPROLOL TART 25 MG TABLET PO SCH (02:55)
[2021-09-06 05:34] LABS: HEMATOCRIT 35.4 % (36.0-47.0); HEMOGLOBIN 12.1 g/dl (12.0-15.5); MEAN CORPUSCULAR HGB CONC 34.2 g/dl (32.0-36.5); MEAN CORPUSCULAR VOLUME 93.7 fl (80.0-96.0); PLATELET COUNT, AUTOMATED 329 10^3/uL (150-450); RED BLOOD COUNT 3.78 10^6/uL (4.00-5.40); WHITE BLOOD COUNT 13.2 10^3/uL (4.0-10.0)
[2021-09-06 06:20] LABS: CALCIUM LEVEL 8.9 MG/DL (8.8-10.2); CREATININE FOR GFR 1.1 MG/DL (0.55-1.30); GLOMERULAR FILTRATION RATE 51.8 (>39); MAGNESIUM LEVEL 1.9 MG/DL (1.8-2.4); PHOSPHORUS LEVEL 3.1 MG/DL (2.5-4.9); POTASSIUM SERUM 4.1 MEQ/L (3.5-5.1)
[2021-09-06] MEDS: BUDESONIDE 180MCG INHALER (PULMICORT FLEXHALER) INH SCH ×2 (07:28→19:15)
[2021-09-06] MEDS: CEFDINIR 300 MG CAP (OMNICEF) PO SCH ×2 (08:52→20:14)
[2021-09-06] MEDS: DIGOXIN 0.25 MG TAB PO SCH (08:53)
[2021-09-06] MEDS: LACTOBACILLUS ACIDOPHILUS CAP (BACID) PO SCH (08:53)
[2021-09-06] MEDS: DOXYCYCLINE HYCLATE 100MG TABLET PO SCH ×2 (08:54→20:14)
[2021-09-06] MEDS: predniSONE 10 MG TAB PO SCH (08:54)
[2021-09-06] MEDS: APIXABAN 5 MG TAB (ELIQUIS) PO SCH ×2 (08:54→20:14)
[2021-09-06] MEDS: METOPROLOL TART 50 MG TAB PO SCH ×3 (08:54→20:15)
[2021-09-06] MEDS: NYSTATIN 100,000 UNITS/GM TOPICAL PWD 15 GM TOP SCH ×2 (08:55→20:13)
[2021-09-06] MEDS: ACETAMINOPHEN TAB 650MG DOSE (2X325MG) PO PRN (12:02)
[2021-09-06] MEDS: OMEPRAZOLE 20 MG CAP PO SCH (12:03)
--- NOTE | 2021-09-06 13:13 | IPNPDOC ---
Subjective Date Seen The patient was seen on 09/06/21. Subjective Chief Complaint/HPI Patient was seen and examined at bedside this morning. She reports significant improvement in her breathing. She was asking to go to rehab, she was explained that physical therapy would work with her hopefully over the weekend and an appropriate disposition would be determined. Objective Physical Examination Other physical findings General: Lying in bed, no acute distress Head/Neck/Throat: Trachea midline, mucous membranes moist Eyes: Sclera anicteric, no erythema or discharge appreciated bilaterally Thorax: Clear to auscultation bilaterally, no wheezes or rales appreciated Cardiovascular: Normal rate, regular rhythm, normal S1, S2; radial and dorsalis pedis pulses 2+ bilaterally. Bilateral pedal edema Abdomen: Bowel sounds present, soft/nontender/nondistended Genitourinary: No CVA tenderness, no Wang in place Skin: Warm, dry Neurologic: Awake, alert, oriented x3 Assessment /Plan Assessment #Left foot drop -MRI negative for stroke. Likely compression of the sciatic nerve from lying on the floor. -Appreciate neuro recommendations. #Sepsis -Resolved. This was secondary to parainfluenza and superimposed pna. -Narrowed antibiotics to cefdinir and doxycycline; appreciate ID input. #Bronchitis -2/2 to parainfluenza; continue with budesonide and steroid taper #Atrial fibrillation w/ RVR -Continue with beta-blockers as well as digoxin that was added to better control her heart rate. Anticoagulation with Eliquis. #MAR -Resolved. This was 2/2 to poor oral intake, also received iv contrast with ct scan. #Rhabdomyolysis -Resolved. #Elevated d-dimer -Likely due to acute illness and advanced age. #Weakness / Fall -Probably due to her viral infection, also deconditioning. -Continue with physical therapy #Electrolyte abnormalities -Hypophosphatemia, replete. #Worsening back pain -Chronic findings appreciated on MRI of the lumbar spine. #Hx of PE -Resume Eliquis #Essential HTN -Continue lisinopril and hydrochlorothiazide with holding parameters. #Class 3 obesity -complicates care #DVT ppx -Offered by Eliquis. Disposition: Patient is medically cleared. Patient is working with physical therapy Plan/VTE VTE Prophylaxis Ordered?: Yes VS, I&O, 24H, Fishbone Vital Signs/I&O Vital Signs Date Time Temp Pulse Resp B/P (MAP) Pulse Ox O2 Delivery O2 Flow Rate FiO2 09/06/21 11:38 98.8 100 18 147/86 (106) 91 Room Air 09/02/21 13:38 I&O- Last 24 Hours up to 6 AM 09/06/21 06:00 Intake Total 300 ml Output Total 450 ml Balance -150 ml Laboratory Data 24H LABS Laboratory Tests 2 09/06/21 05:15: Nucleated Red Blood Cells % (auto) 0.0, Anion Gap 7L, Glomerular Filtration Rate 51.8, Calcium Level 8.9, Phosphorus Level 3.1, Magnesium Level 1.9, Total Creatine Kinase 187# CBC/BMP Laboratory Tests 09/06/21 05:15 Microbiology Microbiology 09/04/21 Stool Occult Blood (CARI) - Final, Complete 09/03/21 Urine Culture - Final, Complete 09/02/21 Blood Culture - Preliminary, Resulted No Growth after 72 hours. All specime... 09/02/21 Blood Culture - Preliminary, Resulted No Growth after 72 hours. All specime... 09/01/21 Blood Culture - Final, Complete Staphylococcus Hominis Ssp Joel 09/01/21 Blood Culture - Preliminary, Resulted No Growth after 72 hours. All specime... 09/01/21 Respiratory Virus Panel (PCR) (CARI) - Final, Complete Parainfluenza 3 (Piv3) AUBREE JOHNSON M.D. Sep 06, 2021 13:13
[2021-09-06] MEDS ORDERED: FUROSEMIDE 20 MG TAB PO ONE (14:00)
[2021-09-06] MEDS: hydroCHLOROthiazide 12.5 MG CAPSULE PO SCH (15:39)
[2021-09-07] MEDS: guaiFENesin DM LIQ 10ML UD PO PRN ×3 (00:18→23:26)
[2021-09-07] MEDS: METOPROLOL TART 50 MG TAB PO SCH ×4 (02:15→20:48)
[2021-09-07 06:00] VITALS: BP 140/74
[2021-09-07 07:04] LABS: HEMATOCRIT 35.8 % (36.0-47.0); MEAN CORPUSCULAR HEMOGLOBIN 31.5 pg (27.0-33.0); MEAN CORPUSCULAR HGB CONC 33.5 g/dl (32.0-36.5); PLATELET COUNT, AUTOMATED 376 10^3/uL (150-450); RED BLOOD COUNT 3.81 10^6/uL (4.00-5.40); WHITE BLOOD COUNT 13.4 10^3/uL (4.0-10.0)
[2021-09-07 07:33] LABS: BLOOD UREA NITROGEN 36 MG/DL (7-18); CALCIUM LEVEL 8.9 MG/DL (8.8-10.2); CARBON DIOXIDE LEVEL 25 MEQ/L (21-32); CHLORIDE LEVEL 110 MEQ/L (98-107); CREATININE FOR GFR 0.94 MG/DL (0.55-1.30); GLOMERULAR FILTRATION RATE > 60.0 (>39); GLUCOSE, FASTING 78 MG/DL (70-100); MAGNESIUM LEVEL 1.8 MG/DL (1.8-2.4); PHOSPHORUS LEVEL 3.3 MG/DL (2.5-4.9); POTASSIUM SERUM 4.1 MEQ/L (3.5-5.1); SODIUM LEVEL 142 MEQ/L (136-145)
[2021-09-07] MEDS: LACTOBACILLUS ACIDOPHILUS CAP (BACID) PO SCH (10:35)
[2021-09-07] MEDS: APIXABAN 5 MG TAB (ELIQUIS) PO SCH ×2 (10:36→20:48)
[2021-09-07] MEDS: OMEPRAZOLE 20 MG CAP PO SCH (10:36)
[2021-09-07] MEDS: predniSONE 10 MG TAB PO SCH (10:36)
[2021-09-07] MEDS: DOXYCYCLINE HYCLATE 100MG TABLET PO SCH ×2 (10:37→20:47)
[2021-09-07] MEDS: CEFDINIR 300 MG CAP (OMNICEF) PO SCH ×2 (10:37→20:48)
[2021-09-07] MEDS: hydroCHLOROthiazide 12.5 MG CAPSULE PO SCH (10:37)
[2021-09-07] MEDS: DIGOXIN 0.25 MG TAB PO SCH (10:38)
[2021-09-07] MEDS: NYSTATIN 100,000 UNITS/GM TOPICAL PWD 15 GM TOP SCH ×2 (10:39→21:13)
[2021-09-07] MEDS: BUDESONIDE 180MCG INHALER (PULMICORT FLEXHALER) INH SCH ×2 (11:42→19:58)
[2021-09-07 14:00] VITALS: BP 144/90
[2021-09-07 20:00] VITALS: BP 114/79
[2021-09-07 21:00] VITALS: BP 114/79
[2021-09-07] MEDS: ACETAMINOPHEN TAB 650MG DOSE (2X325MG) PO PRN (23:26)
[2021-09-08] MEDS: METOPROLOL TART 50 MG TAB PO SCH ×4 (02:09→21:08)
[2021-09-08 06:00] VITALS: BP 140/82
[2021-09-08] MEDS: BUDESONIDE 180MCG INHALER (PULMICORT FLEXHALER) INH SCH (07:18)
[2021-09-08] MEDS: hydroCHLOROthiazide 12.5 MG CAPSULE PO SCH (12:07)
[2021-09-08] MEDS: LACTOBACILLUS ACIDOPHILUS CAP (BACID) PO SCH (12:08)
[2021-09-08] MEDS: CEFDINIR 300 MG CAP (OMNICEF) PO SCH (12:08)
[2021-09-08] MEDS: APIXABAN 5 MG TAB (ELIQUIS) PO SCH ×2 (12:09→21:08)
[2021-09-08] MEDS: OMEPRAZOLE 20 MG CAP PO SCH (12:10)
[2021-09-08] MEDS: DOXYCYCLINE HYCLATE 100MG TABLET PO SCH (12:10)
[2021-09-08] MEDS: DIGOXIN 0.25 MG TAB PO SCH (12:10)
[2021-09-08] MEDS: predniSONE 10 MG TAB PO SCH (12:11)
[2021-09-08] MEDS: NYSTATIN 100,000 UNITS/GM TOPICAL PWD 15 GM TOP SCH ×2 (12:14→21:09)
[2021-09-08] MEDS: FLUTICASONE PROP 0.05% NASAL SPRAY 16 GM (FLONASE) NARES SCH (17:34)
[2021-09-08] MEDS: ACETAMINOPHEN TAB 650MG DOSE (2X325MG) PO PRN (21:08)
[2021-09-09] MEDS: METOPROLOL TART 50 MG TAB PO SCH ×4 (01:57→21:10)
[2021-09-09 06:00] VITALS: BP 124/83
[2021-09-09] MEDS: BUDESONIDE 180MCG INHALER (PULMICORT FLEXHALER) INH SCH ×2 (08:25→20:17)
[2021-09-09] MEDS: hydroCHLOROthiazide 12.5 MG CAPSULE PO SCH (08:36)
[2021-09-09] MEDS: LACTOBACILLUS ACIDOPHILUS CAP (BACID) PO SCH (08:36)
[2021-09-09] MEDS: DIGOXIN 0.25 MG TAB PO SCH (08:36)
[2021-09-09] MEDS: APIXABAN 5 MG TAB (ELIQUIS) PO SCH ×2 (08:37→21:09)
[2021-09-09] MEDS: predniSONE 10 MG TAB PO SCH (08:38)
[2021-09-09] MEDS: OMEPRAZOLE 20 MG CAP PO SCH (08:38)
[2021-09-09] MEDS: FLUTICASONE PROP 0.05% NASAL SPRAY 16 GM (FLONASE) NARES SCH (08:39)
[2021-09-09] MEDS: NYSTATIN 100,000 UNITS/GM TOPICAL PWD 15 GM TOP SCH ×2 (08:40→21:10)
[2021-09-09] MEDS: ACETAMINOPHEN TAB 650MG DOSE (2X325MG) PO PRN (21:10)
[2021-09-10] MEDS: METOPROLOL TART 50 MG TAB PO SCH ×4 (02:00→20:00)
[2021-09-10 06:00] VITALS: BP 114/73
[2021-09-10] MEDS: OMEPRAZOLE 20 MG CAP PO SCH (09:06)
[2021-09-10] MEDS: LACTOBACILLUS ACIDOPHILUS CAP (BACID) PO SCH (09:06)
[2021-09-10] MEDS: APIXABAN 5 MG TAB (ELIQUIS) PO SCH ×2 (09:07→21:19)
[2021-09-10] MEDS: hydroCHLOROthiazide 12.5 MG CAPSULE PO SCH (09:07)
[2021-09-10] MEDS: DIGOXIN 0.25 MG TAB PO SCH (09:08)
[2021-09-10] MEDS: FLUTICASONE PROP 0.05% NASAL SPRAY 16 GM (FLONASE) NARES SCH (09:08)
[2021-09-10] MEDS: NYSTATIN 100,000 UNITS/GM TOPICAL PWD 15 GM TOP SCH ×2 (09:09→21:20)
[2021-09-10] MEDS: BUDESONIDE 180MCG INHALER (PULMICORT FLEXHALER) INH SCH ×2 (09:14→20:18)
--- NOTE | 2021-09-10 09:50 | IPN ---
PROGRESS NOTE DATE: 09/01/2021 The patient seems to be doing better. She thinks she is moving her lower extremity a little better. She is able to move her toes. She is doing physical therapy inhouse for now until the end of the week. MEDICATIONS: - doxycycline 100 mg by mouth twice a day - cefdinir 300 mg by mouth twice a day, currently day #6. This is the end of her treatment for bacterial pneumonia. - prednisone 20 mg by mouth daily taper She complains of a mild cough with postnasal drip and nasal congestion. She usually uses Vicks. It helps at home. She would like some medications for her nasal congestion. LABORATORY DATA: White count 13.4, hemoglobin 12, hematocrit 35.8, platelets 376. Sodium 142, potassium 4.1, chloride 110, bicarbonate 25, BUN 36, creatinine 0.94, glucose 78, calcium 8.9, phosphorus 3.3, magnesium 1.8. PHYSICAL EXAMINATION: Nasal congestion. HEART: Normal S1, S2. No murmurs, rubs, or gallops. LUNGS: A few expiratory wheezes. Good air entry. ABDOMEN: Morbidly obese, soft, nontender. EXTREMITIES: No clubbing, cyanosis, or edema. Left lower extremity weakness with difficulty with knee flexion, dorsiflexion, or plantarflexion. Blood cultures September 02, two sets, no growth after 5 days. On September 01, one out of two with Staphylococcus hominis, which is a contaminant. IMPRESSION: 1. Parainfluenza infection with secondary bacterial pneumonia, status post treatment with ceftriaxone, now on cefdinir along with doxycycline. 2. Currently day #8 of treatment, and antibiotics will be discontinued. 3. Postnasal drip. Will start Flonase nasal spray. 4. Left lower extremity weakness, felt to be related to nerve compression from falling on the floor and laying there for over 10 hours. MRI brain was negative. PLAN: Continue rehabilitation. Discontinue antibiotics. Infectious disease signing off. Will start Flonase two inhalations daily for sinus symptoms, and please discuss with patient and family services (PFS) patient eligibility to have a PureWick external catheter to be used at home, as she has problems with getting out of bed at night for frequency.
[2021-09-10] MEDS: ACETAMINOPHEN TAB 650MG DOSE (2X325MG) PO PRN ×2 (12:04→23:52)
[2021-09-11] MEDS: METOPROLOL TART 50 MG TAB PO SCH ×2 (02:00→09:15)
[2021-09-11 06:00] VITALS: BP 123/63
[2021-09-11] MEDS ORDERED: NYST10006 TOP (07:47)
[2021-09-11] MEDS ORDERED: BUDE180INH INH (07:47)
[2021-09-11] MEDS ORDERED: LOPR1TAB6 PO (07:47)
[2021-09-11] MEDS ORDERED: DIGO0.253 PO (07:47)
[2021-09-11] MEDS ORDERED: FLUTISP NARES (07:47)
[2021-09-11] MEDS: BUDESONIDE 180MCG INHALER (PULMICORT FLEXHALER) INH SCH (07:52)
--- NOTE | 2021-09-11 08:17 | DS.PDOC ---
Discharge Summary General Date of Admission Sep 01, 2021 at 20:00 Date of Discharge 09/11/21 Discharge Summary PROCEDURES PERFORMED DURING STAY: [None]. 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 Gait instability and fall. SECONDARY DIAGNOSIS: Morbid obesity with BMI of 51.1, Atrial fibrillation, history of pulmonary embolism, essential hypertension, Multilevel lumbosacral degenerative disc disease with chronic back pain, sciatica on right side, hiatal hernia, tubal ligation, tonsillectomy COMPLICATIONS/CHIEF COMPLAINT: Mar,Alcohol Dependence,Afib W/Rvr,Parainfluenza,Rh. HOSPITAL COURSE: This is a 75 year old morbidly obese female with PMH of HTN, GERD, chronic back pain, right sided scitica, Afib, h/o pulmonary embolism presented to our hospital on 09/01/21 with 2 days history of cough, short of breath, expectoration of green sputum with poor appetite for 1 week. At about 1AM on the morning of admission while trying to stand up with her cane Ms. Lobo felt a cramping sensation in her left leg and subsequently fell down onto the floor. After the fall she was unsuccessful in getting up so she stayed on the ground until about 11AM when her found her and she was brought to the ED. She was found to have Parainfluenza infection with secondary bacterial pneumonia , sepsis and Afib with rvr and MAR with a admission c reatinine of 3.3. She also had rhabdomyolysis on admission. She continue to have left leg weakness and left foot drop so neurology was consulted. Pateint continued to have generalized weakness and left leg weakness with gait instability. She was assessed by PT/OT and felt to be below her baseline functional capability and recommended continued rehab after discharge. Patient is being discharged to [facility] to continue her physical therapy. Parainfluenza infection with secondary bacterial pneumonia, status post treatment with ceftriaxone, and cefdinir along with doxycycline. Finished antibiotics Acute Bronchitis continue budesonide inhalor. can dc when resolved. Atrial fibrillation w/ RVR 2/2 to underlying infection was initially on amiodarone gtt. Now rate controlled with digoxin and metoprolol. Check digoxin level in 1 week. MAR poor oral intake on the back ground of being on lisinopril and hydrochlorothiazide. She also received iv contrast resolved. Rhabdomyolysis Due to fall and being on the ground for > 10 hours. Max value of creatinine phosphokinase was 6870 now resolved Electrolyte abnormalities Resolved. 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 Follow up Dr Villagran in 2 weeks . will need EMG and NCV as outpatient. Physical and occupational therapy. Left foot ankle foot orthosis (AFO) is recommended. Use walker and cane as necessary. Chronic low back pain and right sided sciatica worse after fall prior to admission Multilevel lumbosacral degenerative disc disease on MRI scan of lumbosacral spine with chronic back pain and sciatica on right side which is likely not contributing to her current problem. Hx of PE continue eliquis. Essential HTN lisinopril/hctz and metoprolol Class 3 obesity complicates care Postnasal drip. Will start Flonase nasal spray. DISCHARGE MEDICATIONS: Please see below. ALLERGIES: Please see below. PHYSICAL EXAMINATION ON DISCHARGE: VITAL SIGNS: Please see below. General: Lying in bed, no acute distress Head/Neck/Throat: Trachea midline, mucous membranes moist Eyes: Sclera anicteric, no erythema or discharge appreciated bilaterally Thorax: Clear to auscultation bilaterally, no wheezes or rales appreciated Cardiovascular: Normal rate, irregular rhythm, normal S1, S2; No rub or murmur, Bilateral pedal edema Abdomen: Bowel sounds present, soft/nontender/nondistended Genitourinary: No CVA tenderness, no Wang in place Skin: Warm, dry Neurologic: Awake, alert, oriented x3 LABORATORY DATA: Please see below. ACTIVITY: [As tolerated]. DIET: As tolerated DISCHARGE PLAN: [facility] DISCHARGE INSTRUCTIONS: Neurology in 2 weeks Check dig level in 1 week DISCHARGE CONDITION: [Stable]. TIME SPENT ON DISCHARGE: 40 minutes. Vital Signs/I&Os Vital Signs Date Time Temp Pulse Resp B/P (MAP) Pulse Ox O2 Delivery O2 Flow Rate FiO2 09/11/21 02:00 71 104/64 09/10/21 06:00 98.5 18 94 Room Air I&O- Last 24 Hours up to 6 AM 09/11/21 07:00 Intake Total 386 ml Output Total 500 ml Balance -114 ml Laboratory Data Labs 24H Laboratory Tests 2 09/10/21 12:05: Coronavirus (COVID-19)(PCR) NEGATIVE Microbiology Microbiology 09/04/21 Stool Occult Blood (CARI) - Final, Complete 09/03/21 Urine Culture - Final, Complete 09/02/21 Blood Culture - Final, Complete NO GROWTH AFTER 5 DAYS 09/02/21 Blood Culture - Final, Complete NO GROWTH AFTER 5 DAYS 09/01/21 Blood Culture - Final, Complete Staphylococcus Hominis Ssp Joel 09/01/21 Blood Culture - Final, Complete NO GROWTH AFTER 5 DAYS 09/01/21 Respiratory Virus Panel (PCR) (CARI) - Final, Complete Parainfluenza 3 (Piv3) Discharge Medications Scheduled Apixaban (Eliquis) 5 Mg Tablet, 5 MG PO BID, (Reported) Budesonide (Pulmicort Flexhaler) 180 Mcg Aer.pow.ba, 2 PUFF INH RBID Cranberry Fruit Concentrate (Azo Cranberry) 250 Mg Tab.chew, 2 CHEW PO DAILY, (Reported) Digoxin (Digoxin) 250 Mcg Tablet, 0.25 MG PO DAILY Fluticasone Propionate (Fluticasone Propionate) 16 Gm Astatula.susp, 2 SPRAY NARES DAILY Latanoprost/Pf (Latanoprost 0.005% Eye Drop) 7.5 Ml Drops, 1 DROP OU QHS, (Reported) Lisinopril/Hydrochlorothiazide (Lisinopril-Hctz 10-12.5 mg Tab) 1 Each Tablet, 1 TAB PO DAILY, (Reported) Metoprolol Tartrate (Lopressor) 50 Mg Tablet, 50 MG PO BID Nystatin (Nystop) 60 Gm Powder, 0 DOSE TOP BID Omeprazole (Omeprazole) 40 Mg Capsule.dr, 40 MG PO DAILY, (Reported) Scheduled PRN Lidocaine (Lidocaine) 5% Adh..patch, 1 PATCH TOP DAILY PRN for BACK PAIN, (Reported) USES ON LOWER BACK/RIGHT HIP Prednisone (Prednisone) 5 Mg Tablet, 5 MG PO BID PRN for MILD/MODERATE PAIN (PS 1-7), (Reported) TAKES FOR SCIATIC PAIN FLARE-UPS Allergies Coded Allergies: No Known Allergies (Verified Allergy, Unknown, 09/01/21) Elisabeth Olvera MD Sep 11, 2021 07:04
[2021-09-11 09:15] VITALS: BP 127/75
[2021-09-11] MEDS: LACTOBACILLUS ACIDOPHILUS CAP (BACID) PO SCH (09:15)
[2021-09-11] MEDS: hydroCHLOROthiazide 12.5 MG CAPSULE PO SCH (09:16)
[2021-09-11] MEDS: OMEPRAZOLE 20 MG CAP PO SCH (09:17)
[2021-09-11] MEDS: APIXABAN 5 MG TAB (ELIQUIS) PO SCH (09:17)
[2021-09-11] MEDS: FLUTICASONE PROP 0.05% NASAL SPRAY 16 GM (FLONASE) NARES SCH (09:17)
[2021-09-11] MEDS: DIGOXIN 0.25 MG TAB PO SCH (09:17)
[2021-09-11] MEDS: NYSTATIN 100,000 UNITS/GM TOPICAL PWD 15 GM TOP SCH (09:18)
== END 2021-09-11 10:52 | DRG 871 ==
LOC: M ED 13:58 → M ED INP 20:00 → M PCU 23:55 → M MSPAV 09-06 20:35
PROVIDERS: ADMIT Internal Medicine; ATTEND Internal Medicine Nephrology
DX: A41.89 Other specified sepsis (principal); J15.9 Unspecified bacterial pneumonia; I48.11 Longstanding persistent atrial fibrillation; N17.9 Acute kidney failure, unspecified; M62.82 Rhabdomyolysis; Z68.43 Body mass index [BMI] 50.0-59.9, adult; I10 Essential (primary) hypertension; E66.01 Morbid (severe) obesity due to excess calories; K44.9 Diaphragmatic hernia without obstruction or gangrene; M21.372 Foot drop, left foot; M51.37 Other intervertebral disc degeneration, lumbosacral region; J20.8 Acute bronchitis due to other specified organisms; R26.89 Other abnormalities of gait and mobility; G57.02 Lesion of sciatic nerve, left lower limb; R53.1 Weakness; E87.6 Hypokalemia; Z87.891 Personal history of nicotine dependence; Z79.01 Long term (current) use of anticoagulants; Z79.899 Other long term (current) drug therapy